=== PATIENT | female | born 1945 | race Hispanic/Latino ===

== ENCOUNTER 2017-01-03 15:41 | Inpatient (IN) | payer MEDICARE, MEDICAID ==
--- NOTE | 2017-01-03 17:24 | C.PDOC ---
History Of Present Illness <Zenobia Yoder - Last Filed: 01/03/17 18:46> <Marielos Valeroyeny Vicente - Last Filed: 01/03/17 21:09> 71 Y/O FEMALE BROUGHT TO emergency department BY SON WHO REPORTS ON AND OFF DIARRHEA FOR ABOUT 1 MONTH. PATIENT STATES DIARRHEA IS NOW MOSTLY LIQUID. DENIES BLOODY DIARRHEA. ALSO REPORTS INCREASED GENERALIZED WEAKNESS. DENIES FEVERS, CHILLS, LIGHTHEADEDNESS, DIZZINESS, NAUSEA, VOMITING, ABDOMINAL PAIN. ( Zenobia Yoder) History Per: Patient History/Exam Limitations: no limitations Onset/Duration Of Symptoms: Days Current Symptoms Are (Timing): Still Present Reports Recently: Treated By A Physician Recent travel outside of the [place]: No <Zenobia Yoder - Last Filed: 01/03/17 18:46> <Bob Valero Jules - Last Filed: 01/03/17 21:09> Time Seen by Provider: 01/03/17 16:56 Chief Complaint (Nursing): GI Problem Past Medical History Reviewed: Historical Data, Nursing Documentation, Vital Signs - Medical History PMH: Anxiety, Depression, HTN Surgical History: Cholecystectomy Family History: States: Unknown Family Hx - Social History Hx Alcohol Use: No Hx Substance Use: No - Immunization History Hx Tetanus Toxoid Vaccination: No Hx Influenza Vaccination: No Hx Pneumococcal Vaccination: No <Zenobia Yoder Last Filed: 01/03/17 18:46> Review Of Systems Except As Marked, All Systems Reviewed And Found Negative. Constitutional: Positive for: Weakness. Negative for: Fever, Chills Cardiovascular: Negative for: Chest Pain Respiratory: Negative for: Cough, Shortness of Breath Gastrointestinal: Positive for: Diarrhea. Negative for: Abdominal Pain Skin: Negative for: Rash Neurological: Negative for: Headache, Dizziness <Zenobia Yoder - Last Filed: 01/03/17 18:46> Physical Exam - Physical Exam Appears: Non-toxic, No Acute Distress Skin: Normal Color, Warm, Dry Head: Atraumatic, Normacephalic Oral Mucosa: Moist Chest: Symmetrical Cardiovascular: Rhythm Regular Respiratory: Normal Breath Sounds, No Rales, No Rhonchi, No Wheezing Gastrointestinal/Abdominal: Soft, No Tenderness, No Guarding, No Rebound Back: Normal Inspection Extremity: Normal ROM, Capillary Refill (< 2 sec. ) Neurological/Psych: Oriented x3, Normal Speech, Normal Cognition <Ho,Zenobia - Last Filed: 01/03/17 18:46> ED Course And Treatment - Laboratory Results Result Diagrams: 01/03/17 18:27 O2 Sat by Pulse Oximetry: 99 <Zenobia Yoder - Last Filed: 01/03/17 18:46> - Laboratory Results Result Diagrams: 01/03/17 18:27 01/03/17 18:27 Progress Note: Dr. Conner's office called, Dr. Sherwood was found to be covering for Dr. Conner and was made aware of patient. <Bob Valero - Last Filed: 01/03/17 21:09> Progress - Data Reviewed Data Reviewed: Lab <Zenobia Yoder - Last Filed: 01/03/17 18:46> <Bob Valero - Last Filed: 01/03/17 21:09> - Re-Evaluation Re-evaluation Note: 01/03/17 17:40 SON STATES UNABLE TO CARE FOR PT AT HOME. REQUESTING ADMISSION FOR POSSIBLE PLACEMENT 01/03/17 19:00 APPEARS COMFORTABLE NAD S/O DR VALERO FU LABS, DISPO (Zenobia Yoder) Disposition <Zenobia Yoder - Last Filed: 01/03/17 18:46> Discussed With : Angela Hickey Doctor Will See Patient In The: Hospital Counseled Patient/Family Regarding: Diagnosis - Disposition Disposition Time: 20:53 - POA Present On Arrival: None <Bob Valero - Last Filed: 01/03/17 21:09> - Disposition Disposition: HOSPITALIZED Condition: STABLE Forms: [facility] ([place]) - Clinical Impression Clinical Impression: Diarrhea, Renal insufficiency
[2017-01-03 18:35] LABS: BASO # 0.1 K/uL (0.0-0.2); BASO % 1.1 % (0.0-2.0); EOS # 0.2 K/uL (0.0-0.7); EOS % 1.8 % (0.0-4.0); HEMATOCRIT 46.8 % (34.0-47.0); LYMPH # 2.7 K/uL (1.0-4.3); LYMPH % 29.1 % (20.0-40.0); MEAN CELL VOLUME 92.9 fL (81.0-99.0); MEAN CORPUSCULAR HEMOGLOBIN 30.9 pg (27.0-31.0); MEAN CORPUSCULAR HGB CONC 33.2 g/dL (33.0-37.0); MEAN PLATELET VOLUME 9.9 fL (7.2-11.7); MONO # 0.6 K/uL (0.0-0.8); MONO % 6.6 % (0.0-10.0); RED CELL DISTRIBUTION WIDTH 14.6 % (11.5-14.5); WHITE BLOOD COUNT 9.3 K/uL (4.8-10.8)
[2017-01-03 18:49] LABS: CALCIUM 10.9 mg/dl (8.6-10.4)
[2017-01-03] MEDS ORDERED: Sodium Chloride 0.9% 1,000 ML IV ONE (20:40)
[2017-01-03] MEDS ORDERED: Sodium Chloride 0.9% 1,000 ML ONE (21:17)
[2017-01-04] MEDS: Sodium Chloride 0.45% 1,000 ML IV SCH ×3 (00:14→22:10)
[2017-01-04 07:15] LABS: BASO # 0.1 K/uL (0.0-0.2); BASO % 0.7 % (0.0-2.0); EOS # 0.2 K/uL (0.0-0.7); EOS % 2.7 % (0.0-4.0); HEMATOCRIT 44.1 % (34.0-47.0); LYMPH # 2.7 K/uL (1.0-4.3); LYMPH % 31.7 % (20.0-40.0); MEAN CELL VOLUME 93.2 fL (81.0-99.0); MEAN CORPUSCULAR HEMOGLOBIN 30.3 pg (27.0-31.0); MEAN CORPUSCULAR HGB CONC 32.5 g/dL (33.0-37.0); MEAN PLATELET VOLUME 10.6 fL (7.2-11.7); MONO # 0.8 K/uL (0.0-0.8); MONO % 9.6 % (0.0-10.0); NRBC % 0.1 % (0.0-2.0); RED CELL DISTRIBUTION WIDTH 14.3 % (11.5-14.5); WHITE BLOOD COUNT 8.4 K/uL (4.8-10.8)
[2017-01-04 07:57] LABS: ALB/GLOB RATIO 1.1 (1.0-2.1); BILIRUBIN,TOTAL 0.4 mg/dL (0.2-1.3); POTASSIUM 3.5 mmol/L (3.6-5.2)
[2017-01-04] MEDS ORDERED: TRAZODONE HCL 50 MG PO SCH (10:00)
[2017-01-04] MEDS ORDERED: Albuterol HFA 90 mcg/actuation (8 g) IH SCH (10:00)
[2017-01-04] MEDS: Multiple Vitamins Tab PO SCH (10:42)
[2017-01-04] MEDS: Pantoprazole 40 mg EC Tab PO SCH (10:42)
--- NOTE | 2017-01-04 11:12 | CP.PCM.CON ---
History of Present Illness - History of Present Illness History of Present Illness: 71 Y/O FEMALE BROUGHT TO emergency department BY SON WHO REPORTS ON AND OFF DIARRHEA FOR ABOUT 1 MONTH. PATIENT STATES DIARRHEA IS NOW MOSTLY LIQUID. DENIES BLOODY DIARRHEA. ALSO REPORTS INCREASED GENERALIZED WEAKNESS. DENIES FEVERS, CHILLS, LIGHTHEADEDNESS, DIZZINESS, NAUSEA, VOMITING, ABDOMINAL PAIN. Consulted for new increase in azotemia. NO H/O CKD PMH: HTN DEPRESSION KIDNEY STONES RUPTURED KIDNEY CYST 10 YEARS AGO REQUIRING PNT PSH: CHOLEYCYSTECTOMY PNT; REMOVAL Review of Systems - Constitutional Constitutional: Chills, Lethargy, Weakness - EENT Eyes: absent: As Per HPI, Blind Spots, Blurred Vision, Change in Vision, Decreased Night Vision, Diplopia, Discharge, Dry Eye, Exophthalmos, Floaters, Irritation, Itchy Eyes, Loss of Peripheral Vision, Pain, Photophobia, Requires Corrective Lenses, Sees Flashes, Spots in Vision, Tunnel Vision, Other Visual Disturbances, Loss of Vision, Other Ears: absent: As Per HPI, Decreased Hearing, Ear Discharge, Ear Pain, Tinnitus, Abnormal Hearing, Disequilibrium, Dizziness, Other Nose/Mouth/Throat: absent: As Per HPI, Epistaxis, Nasal Congestion, Nasal Discharge, Nasal Obstruction, Nasal Trauma, Nose Pain, Post Nasal Drip, Sinus Pain, Sinus Pressure, Bleeding Gums, Change in Voice, Dental Pain, Dry Mouth, Dysphagia, Halitosis, Hoarsness, Lip Swelling, Mouth Lesions, Mouth Pain, Odynophagia, Sore Throat, Throat Swelling, Tongue Swelling, Facial Pain, Neck Pain, Neck Mass, Other - Cardiovascular Cardiovascular: absent: As Per HPI, Acrocyanosis, Chest Pain, Chest Pain at Rest , Chest Pain with Activity, Claudication, Diaphoresis, Dyspnea, Dyspnea on Exertion, Edema, Irregular Heart Rhythm, Pain Radiating to Arm/Neck/Jaw, Leg Edema, Leg Ulcers, Lightheadedness, Orthopnea, Palpitations, Paroxysmal Nocturnal Dyspnea, Pedal Edema, Radiating Pain, Rapid Heart Rate, Slow Heart Rate, Syncope, Other - Respiratory Respiratory: absent: As Per HPI, Cough, Dyspnea, Hemoptysis, Dyspnea on Exertion , Wheezing, Snoring, Stridor, Pain on Inspiration, Chest Congestion, Excessive Mucous Production, Change in Mucous Color, Pain with Coughing, Other - Gastrointestinal Gastrointestinal: Abdominal Pain, Diarrhea - Genitourinary Genitourinary: Difficulty Urinating, Voiding Freq/Small Amts - Musculoskeletal Musculoskeletal: Arthralgias, Muscle Cramps, Stiffness - Integumentary Integumentary: absent: As Per HPI, Acne, Alopecia, Bleeding Lesions, Change in Hair, Change in Nails, Change in Pigmentation, Changing Lesions, Dry Skin, Erythema, Furuncle, Hirsutism, Lesions, New Lesions, Non-Healing Lesions, Photosensitivity, Pruritus, Rash, Skin Pain, Skin Ulcer, Sores, Striae, Swelling , Unusual Bruising, Wounds, Jaundice, Other - Neurological Neurological: absent: As Per HPI, Abnormal Gait, Abnormal Hearing, Abnormal Movements, Abnormal Speech, Behavioral Changes, Burning Sensations, Confusion, Convulsions, Disequilibrium, Dizziness, Numbness, Focal Weakness, Frequent Falls , Headaches, Lack of Coordination, Loss of Vision, Memory Loss, Paresthesias, Radicular Pain, Restless Legs, Sensory Deficit, Syncope, Tingling, Tremor, Vertigo, Weakness, Other Visual Disturbances, Other - Psychiatric Psychiatric: Anxiety, Depression Past Patient History - Past Medical History & Family History Past Medical History?: Yes Past Family History: Reviewed and not pertinent - Past Social History Smoking Status: Heavy Smoker > 10 Cigarettes Daily Chewing Tobacco Use: No Cigar Use: No Alcohol: None Home Situation {Lives}: Friends - CARDIAC Hx Cardiac Disorders: Yes Hx Hypertension: Yes - PULMONARY Hx Respiratory Disorders: No - NEUROLOGICAL Hx Neurological Disorder: No - HEENT Hx HEENT Problems: No - RENAL Hx Chronic Kidney Disease: No - ENDOCRINE/METABOLIC Hx Endocrine Disorders: No - HEMATOLOGICAL/ONCOLOGICAL Hx Blood Disorders: No - INTEGUMENTARY Hx Dermatological Problems: No - MUSCULOSKELETAL/RHEUMATOLOGICAL Hx Falls: No - GASTROINTESTINAL Hx Gastrointestinal Disorders: No - GENITOURINARY/GYNECOLOGICAL Hx Genitourinary Disorders: No - PSYCHIATRIC Hx Psychophysiologic Disorder: Yes Hx Anxiety: Yes Hx Depression: Yes Hx Substance Use: No - SURGICAL HISTORY Hx Surgeries: Yes Hx Cholecystectomy: Yes - ANESTHESIA Hx Anesthesia: Yes Hx Anesthesia Reactions: No Hx Malignant Hyperthermia: No Has any member of the family had a problem w/ anesthesia?: No Meds Allergies/Adverse Reactions: Allergies Allergy/AdvReac Type Severity Reaction Status Date / Time No Known Allergies Allergy Verified 01/03/17 16:03 - Medications Medications: Current Medications Albuterol (Ventolin Hfa 90 Mcg/Actuation (8 G)) 90 puff IH RQID [facility] Amlodipine Besylate (Norvasc) 5 mg PO DAILY [facility] Last Admin: 01/04/17 10:43 Dose: 5 mg Aspirin (Aspirin Chewable) 81 mg PO DAILY [facility] Last Admin: 01/04/17 10:42 Dose: 81 mg Heparin Sodium (Porcine) (Heparin) 5,000 units SC Q8 [facility] Sodium Chloride (Sodium Chloride 0.45%) 1,000 mls @ 75 mls/hr IV .[id number] [facility] Last Admin: 01/04/17 00:14 Dose: 75 mls/hr Metoprolol Tartrate (Lopressor) 50 mg PO BID [facility] Last Admin: 01/04/17 10:44 Dose: Not Given Montelukast Sodium (Singulair) 10 mg PO DAILY [facility] Last Admin: 01/04/17 10:43 Dose: 10 mg Multivitamins (Hexavitamin) 1 tab PO DAILY [facility] Last Admin: 01/04/17 10:42 Dose: 1 tab Pantoprazole Sodium (Protonix Ec Tab) 40 mg PO DAILY [facility] Last Admin: 01/04/17 10:42 Dose: 40 mg Pneumococcal Polyvalent Vaccine (Pneumovax 23 Vaccine) 0.5 ml IM .ONCE ONE Stop: 01/06/17 10:01 Trazodone HCl (Desyrel) 50 mg PO [facility] Physical Exam - Constitutional Appears: No Acute Distress, Chronically Ill - Head Exam Head Exam: ATRAUMATIC, NORMAL INSPECTION - Eye Exam Eye Exam: EOMI, Normal appearance - Neck Exam Neck exam: Positive for: Normal Inspection. Negative for: Tenderness - Respiratory Exam Respiratory Exam: Clear to Auscultation Bilateral, NORMAL BREATHING PATTERN - Cardiovascular Exam Cardiovascular Exam: REGULAR RHYTHM, +S1 - GI/Abdominal Exam GI & Abdominal Exam: Soft. absent: Tenderness - Extremities Exam Extremities exam: Positive for: normal inspection. Negative for: tenderness - Neurological Exam Neurological exam: CN II-XII Intact, Oriented x3 - Skin Skin Exam: Dry, Warm Results - Vital Signs Recent Vital Signs: Last Vital Signs Temp 97.7 F 01/04/17 08:14 Pulse 58 L 01/04/17 08:14 Resp 20 01/04/17 08:14 BP 138/77 01/04/17 08:14 Pulse Ox 96 01/04/17 08:14 - Labs Result Diagrams: 01/04/17 06:35 01/04/17 06:32 Labs: Laboratory Results - last 24 hr 01/04/17 01/04/17 06:32 06:35 WBC 8.4 RBC 4.74 Hgb 14.3 Hct 44.1 MCV 93.2 MCH 30.3 MCHC 32.5 L RDW 14.3 Plt Count 118 L D MPV 10.6 Neut % (Auto) 55.3 Lymph % (Auto) 31.7 [place] % (Auto) 9.6 Eos % (Auto) 2.7 Baso % (Auto) 0.7 Neut # 4.6 Lymph # 2.7 [place] # 0.8 Eos # 0.2 Baso # 0.1 Sodium 139 Potassium 3.5 L Chloride 105 Carbon Dioxide 22 Anion Gap 16 BUN 42 H Creatinine 2.2 H Est GFR ( Amer) 27 Est GFR (Non-Af Amer) 22 Random Glucose 101 Calcium 10.0 Total Bilirubin 0.4 AST 20 ALT 32 Alkaline Phosphatase 65 Total Protein 6.0 L Albumin 3.2 L Globulin 2.8 Albumin/Globulin Ratio 1.1 Assessment & Plan (1) Watery diarrhea syndrome Status: Acute (2) Dehydration Status: Acute (3) Essential (primary) hypertension Status: Acute - Assessment and Plan (Free Text) Plan: Renal US check u/a check for proteinuria agree with IV fluids Hold BP meds Replete K
--- NOTE | 2017-01-04 11:28 | US ---
PROCEDURE: Renal/urinary bladder ultrasound HISTORY: Renal failure COMPARISON: None available. TECHNIQUE: Sonogram of the kidneys/urinary bladder. FINDINGS: RIGHT KIDNEY: Measures: 10.5 x 4.6 x 5.5 cm. No hydronephrosis or obstructing calculus identified. 2.8 x 2.6 x 2.1 cm, 2.2 x 1.5 x 2.1 cm, and 2.0 x 1.3 x 1.8 cm renal cysts. LEFT KIDNEY: Measures: 11.0 x 5.0 x 5.2 cm. No hydronephrosis or obstructing calculus identified. 1.6 x 1.5 x 1.3 cm (with evidence of septation), 13.2 x 2.7 x 3.0 cm, and 2.1 x 2.1 x 2.3 cm renal cysts. OTHER FINDINGS: Prevoid urinary bladder measures approximately 5.7 x 5.4 x 7.6 cm, calculated volume 123 mL. No postvoid residual. The right ureteral jet is identified. The left ureteral jet was not seen. IMPRESSION: Bilateral renal cysts. Prevoid urinary bladder volume 123 mL. No postvoid residual. The right ureteral jet is identified. The left ureteral jet was not seen.
[2017-01-04] MEDS: Albuterol HFA 90 mcg/actuation (8 g) IH SCH ×3 (12:23→19:18)
--- NOTE | 2017-01-04 14:41 | PCM.PSYCH ---
Initial Psychiatric Evaluation - Initial Psychiatric Evaluation Chief Complaint (in patient's own words): "I cry a lot" Patient's Reaction to Hospitalization: cooperative History of Present Illness and Precipitating Events: The patient was seen, the chart was reviewed, and the case was discussed with the attending. Mrs Gonzalez is a 71 year old female with a past psychiatric history of anxiety who is admitted on the med/surg unit for diarrhea of 1 month. Psychiatry was consulted due to her history of anxiety. During our interview Mrs Gonzalez was pleasant, alert, attentive and AAOx4. She admitted to feeling anxiety about her living situation as her son can no longer care for her and wants [place] [facility] [place] [facility]. She denied depressive symptoms such as anhedonia, loss of interest or general discontent but also said "I've always cried a lot". When asked if she had suicidal ideations she said "sometimes I wish I were " but that these were passing thoughts and that she had no plan. She stated she was excited about her daughters upcoming wedding. She denies auditory or visual hallucinations, paranoia. She denies alcohol abuse or substance abuse. She stated that was has never been hospitalized for a psychiatric condition. She's seen a psychiatrist outpatient in the past but not currently. Pyschiatric Hx: anxiety Other Medical Hx: HTN, hx of nephrolithiasis Pyschiatric Medications: clonazepam 0.5mg bid Social Hx: ; 3 adult children; [place] but currently living with son in ; denies alcohol; current smoker; Fam hx: denies Current Medications: Active Medications Generic Name Dose Route Start Last Admin Trade Name Sunitha PRN Reason Stop Dose Admin Albuterol 90 puff 01/04/17 12:00 01/04/17 12:23 Ventolin Hfa 90 Mcg/Actuation (8 G) IH Not Given RQID [facility] Amlodipine Besylate 5 mg 01/04/17 10:00 01/04/17 10:43 Norvasc PO 5 mg DAILY [facility] Administration Aspirin 81 mg 01/04/17 10:01/04/17 10:42 Aspirin Chewable PO 81 mg DAILY [facility] Administration Heparin Sodium (Porcine) 5,000 units 01/04/17 14:00 Heparin SC Q8 [facility] Sodium Chloride 1,000 mls @ 75 mls/hr 01/03/17 23:45 01/04/17 00:14 Sodium Chloride 0.45% IV 75 mls/hr .[id number] NICHOLAS Administration Metoprolol Tartrate 50 mg 01/04/17 10:00 01/04/17 10:44 Lopressor PO Not Given BID NICHOLAS Montelukast Sodium 10 mg 01/04/17 10:00 01/04/17 10:43 Singulair PO 10 mg DAILY [facility] Administration Multivitamins 1 tab 01/04/17 10:00 01/04/17 10:42 Hexavitamin PO 1 tab DAILY [facility] Administration Pantoprazole Sodium 40 mg 01/04/17 10:00 01/04/17 10:42 Protonix Ec Tab PO 40 mg DAILY [facility] Administration Pneumococcal Polyvalent Vaccine 0.5 ml 01/06/17 10:00 Pneumovax 23 Vaccine IM 01/06/17 10:01 .ONCE ONE Potassium Chloride 20 meq 01/04/17 11:30 K-Dur 20 Meq Er Tab PO 01/06/17 06:00 DAILY [facility]ICH[facility] Trazodone HCl 50 mg 01/04/17 22:00 Desyrel PO HS NICHOLAS Past Psychiatric History - Past Psychiatric History Prior Professional Help: saw psychiatrist outpatient History of ETOH/Drug Use: denies History of Family Illness: denies Pertinent Medical Hx (Current Medical&Sleep Prob, Allergies): Allergies Allergy/AdvReac Type Severity Reaction Status Date / Time No Known Allergies Allergy Verified 01/03/17 16:03 Albuterol Sulfate [Proair Hfa] 0.09 mg IH QID 01/03/17 Aspirin 81 mg PO DAILY 01/03/17 Metoprolol Tartrate [Lopressor] 50 mg PO BID 01/03/17 Mirabegron [Myrbetriq] 25 mg PO DAILY 01/03/17 Montelukast Sodium [Singulair] 10 mg PO DAILY 01/03/17 Multivitamin [Daily Jean Claude] 1 tab PO DAILY 01/03/17 Olmesartan/Hydrochlorothiazide [Olmesartan-Hctz 40-25 mg Tab] 1 each PO DAILY Pantoprazole Sodium [Protonix] 40 mg PO DAILY 01/03/17 Spironolactone [Aldactone] 25 mg PO DAILY 01/03/17 Trazodone HCl 50 mg PO DAILY 01/03/17 amLODIPine [Norvasc] 5 mg PO DAILY 01/03/17 clonazePAM [clonAZEPAM] 0.5 mg PO BID 01/03/17 Review of Systems - Psychiatric Psychiatric: Anxiety, Depression. absent: Anhedonia, Auditory Hallucinations, Confusion, Difficulty Concentrating, Homicidal Ideation, Hopelessness, Paranoia , Suicidal Ideation, Visual Hallucinations Mental Status Examination - Affect Affect: Broad - Motor Activity Motor Activity: Calm - Reliability in Providing Information Reliability in Providing Information: Good - Speech Speech: Organized - Mood Mood: Depressed, Anxious - Formal Thought Process Formal Thought Process: No Impairment - Obsessions/Compulsions Obsessions: No Compulsions: No - Cognitive Functions Orientation: Person, Place, Situation, Time Sensorium: Alert Attention/Concentration: Attentive Abstract Thinking: [place] Estimate of Intelligence: Average Judgement: Intact, as evidence by: Insight regarding need for hospitalization Memory: Recent intact, as evidence by: Ability to recall events of the day - Risk Risk: Diminished functioning - Strength & Assets Inventory Strength & Assets Inventory: Family support, Cooperative DSM 5 DX - DSM 5 DSM 5 Diagnosis: Major depressive disorder single episode mild - Recommended/Plan of Treatment Treatment Recommendations and Plan of Treatment: Major depressive disorder single episode mild CBT Psychoeducation Supportive therapy con't home med of clonazepam 0.5mg po bid con't home med of trazadone 50mg po hs start escitalopram 5mg po daily
[2017-01-04] MEDS: Potassium Chloride 20 mEq ER Tab PO SCH (14:59)
--- NOTE | 2017-01-04 16:01 | CP.PCM.PN ---
Subjective - Date & Time of Evaluation Date of Evaluation: 01/04/17 Time of Evaluation: 15:30 - Subjective Subjective: Patient is seen and examined at bedside. Objective - Vital Signs/Intake and Output Vital Signs (last 24 hours): Temp Pulse Resp BP Pulse Ox 97.7 F 58 L 20 138/77 96 01/04/17 08:14 01/04/17 08:14 01/04/17 08:14 01/04/17 08:14 01/04/17 08:14 - Medications Medications: Current Medications Albuterol (Ventolin Hfa 90 Mcg/Actuation (8 G)) 90 puff IH RQID [facility] Last Admin: 01/04/17 15:55 Dose: Not Given Amlodipine Besylate (Norvasc) 5 mg PO DAILY [facility] Last Admin: 01/04/17 10:43 Dose: 5 mg Aspirin (Aspirin Chewable) 81 mg PO DAILY [facility] Last Admin: 01/04/17 10:42 Dose: 81 mg Clonazepam (Klonopin) 0.5 mg PO BID [facility] Escitalopram Oxalate (Lexapro) 5 mg PO DAILY [facility] Heparin Sodium (Porcine) (Heparin) 5,000 units SC Q8 [facility] Last Admin: 01/04/17 15:00 Dose: 5,000 units Sodium Chloride (Sodium Chloride 0.45%) 1,000 mls @ 75 mls/hr IV .[id number] [facility] Last Admin: 01/04/17 15:01 Dose: 75 mls/hr Metoprolol Tartrate (Lopressor) 50 mg PO BID [facility] Last Admin: 01/04/17 10:44 Dose: Not Given Montelukast Sodium (Singulair) 10 mg PO DAILY [facility] Last Admin: 01/04/17 10:43 Dose: 10 mg Multivitamins (Hexavitamin) 1 tab PO DAILY [facility] Last Admin: 01/04/17 10:42 Dose: 1 tab Pantoprazole Sodium (Protonix Ec Tab) 40 mg PO DAILY [facility] Last Admin: 01/04/17 10:42 Dose: 40 mg Pneumococcal Polyvalent Vaccine (Pneumovax 23 Vaccine) 0.5 ml IM .ONCE ONE Stop: 01/06/17 10:01 Potassium Chloride (K-Dur 20 Meq Er Tab) 20 meq PO DAILY [facility] Stop: 01/06/17 06:00 Last Admin: 01/04/17 14:59 Dose: 20 meq Trazodone HCl (Desyrel) 50 mg PO HS [facility] - Labs Labs: 01/04/17 06:35 01/04/17 06:32
[2017-01-04 16:56] LABS: RBC URINE < 1 /hpf (0-3); TRANSITIONAL EPITHIAL < 1 /hpf (0-3); URINE BACTERIA RARE (<OCC); URINE BILIRUBIN NEGATIVE (NEGATIVE); URINE BLOOD NEGATIVE (NEGATIVE); URINE COLOR Straw (YELLOW); URINE GLUCOSE (UA) NORMAL (Normal); URINE KETONE NEGATIVE (NEGATIVE); URINE PROTEIN 1+ mg/dL (NEGATIVE); URINE UROBILINOGEN NORMAL mg/dL (0.2-1.0); WBC URINE 8 /hpf (0-5)
[2017-01-04 16:57] LABS: URINE LEUKOCYTE ESTERASE 1+ Leu/uL (Negative)
[2017-01-04 18:52] LABS: C DIFF TOXIN A B POSITIVE (NEGATIVE)
[2017-01-04 19:58] LABS: FECAL LEUKOCYTES NEGATIVE (NEGATIVE)
[2017-01-05] MEDS: Sodium Chloride 0.45% 1,000 ML IV SCH ×2 (06:07→15:45)
--- NOTE | 2017-01-05 06:14 | HP ---
CHIEF COMPLAINT: Progressive worsening of low back pain and black colored stools over the past one month. HISTORY OF PRESENT ILLNESS: Ms. Gonzalez is a 71-year-old female with past medical history of back pain with sciatica, hypertension, depression, anxiety, asthma who has been following up at [facility] came into the ED brought by the patient's son for worsening symptoms of back pain, unable to ambulate at home and for persistent diarrhea. As per the patient, her back pain has been their for longtime. Her back pain is in the lower back radiating to the right leg. Denies any neurologic deficits, but claiming that she is not able to ambulate, using only cane to walk around. She claims that she has been having multiple episodes of watery loose bowel movements, which were turning like black in the past few days, it is not able to hold the bowel movement, claiming that sometime she would do the bowel movements in her dress or on her way to the bathroom as she could not control. She denies any headache, but complaining of generalized fatigue. Denies dizziness. Denies any chest pain, shortness of breath or wheezing. Denies any nausea, vomiting or abdominal pain. Denies any urinary complaints. Denies any other joint swelling or other neurologic symptoms. PAST MEDICAL HISTORY: As described hypertension, asthma, anxiety and depression. FAMILY HISTORY: Both mother and father . PERSONAL HISTORY: She is , having 3 children. She used to live with her daughter in [place] now visiting her son in [place]. 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 SOCIAL HISTORY: She has been smoking for many years. Smokes 5 cigarettes to 1 pack per day. Denies any alcohol or drug abuse. ALLERGIES: NO KNOWN DRUG ALLERGIES. MEDICATIONS: Include metoprolol 50 mg b.i.d., clonazepam 0.5 mg b.i.d., Norvasc 5 mg daily, losartan and hydrochlorothiazide 40/25 mg daily, Singulair 10 mg daily, albuterol inhaler, multivitamin daily, Myrbetriq 25 mg daily, aspirin 81 mg daily, spironolactone 25 mg daily, Protonix 40 mg daily and Trazodone 50 mg daily. PAST SURGICAL HISTORY: Underwent cholecystectomy and left kidney cyst rupture about 10 years ago and left breast biopsy, left nipple region 2 days ago for chronic nipple discharge. REVIEW OF SYSTEMS: As described in history of present illness. All other systems reviewed and were found to be negative. PHYSICAL EXAMINATION: GENERAL: An elderly female, lying in bed in no acute distress. VITAL SIGNS: Blood pressure 138/77, pulse 58, respirations 20, temperature 97.7 degrees Fahrenheit, and O2 sats 96% on room air. HEENT: Pupils are equal, round, and reactive to light and accommodation. Extraocular muscles intact. No icterus. No pallor. No oral thrush. No pharyngeal congestion. NECK: Supple. No JVD. No thyromegaly. CHEST: Moving equally bilaterally on respiration. LUNGS: Bilateral vesicular breath sounds. No wheezing. No rhonchi. CVS: S1 and S2 present and regular. ABDOMEN: Soft and nontender. Bowel sounds present. No guarding. No rigidity. No rebound tenderness noted. CLAIMS VICE PRESIDENT: Alert, awake, and oriented x3. Decreased reflexes in the right side and power 3-4/5 in the right lower extremity. EXTREMITIES: No edema. Palpable peripheral pulses. LABORATORY DATA: WBC 8.4, hemoglobin 14.3, hematocrit 44.1 and platelets 118. Sodium 139, potassium 3.5, chloride 105, bicarb 22, BUN 42, creatinine 2.2, glucose 101, calcium 10.0, total bilirubin 0.4, AST 20, ALT 32, alkaline phosphatase 65, total protein 6.0, albumin 3.2. UA specific gravity 1.009, pH of 5.0, protein 1+, leukocyte esterase 1+, and wbc 8. Bladder ultrasound shows bilateral renal cyst, pre void urinary bladder volume of 23 mL, no post void residual. The right ureteral jet is identified. The left ureteral jet was not seen. ASSESSMENT: An elderly female with past medical history of hypertension, anxiety depression, asthma who has been following up with doctors at [place] admitted for chronic diarrhea for 1 month, which is black colored for the past few days and generalized fatigue. In emergency department, the patient was found to be having elevated BUN and creatinine and the patient is being admitted for further management. 1. Acute kidney injury, probably secondary to dehydration and diarrhea and the patient on angiotensin converting enzyme inhibitors and diuretics. 2. Chronic diarrhea rule out lower gastrointestinal bleeding rule out Clostridium difficile colitis rule out other infectious causes chronic low back pain. 3. Hypertension. 4. History of anxiety and depression. PLAN: The patient is being admitted to medical floor. The patient is started on IV fluids. We will hold on losartan and hydrochlorothiazide and Aldactone, which the patient was getting at home. We will continue with Lopressor and amlodipine. We will give gentle hydration. Repeat BMP in a.m. Renal consult appreciated. We will check stool for culture ova, parasites and C. diff. We will obtain GI evaluation with Dr. Gómez. I will obtain MRI of the lower back. We will request physical therapy and occupational therapy. We will continue with her other psychiatric medication, request psychiatric evaluation. We will add further recommendation as her clinical course progresses. Angela Hickey MD
--- NOTE | 2017-01-05 07:46 | CP.PCM.CON ---
History of Present Illness - History of Present Illness History of Present Illness: This is a 71 year old woman with diarrhea. Patient is a poor historian. Patient has had diarrhea for the past month, up to six or eight bowel movements daily, soft to watery, without abdominal pain or bleeding. She reports only two episodes of nocturnal diarrhea. After taking Pepto-Bismol, the color turned dark. Stool for C. difficile toxin was positive. However, she denies taking antibiotics recently or being hospitalized since her cholecystectomy. Patient reports that a colonoscopy was done five years ago in [facility], and was normal. She denies having fever, chills, dizziness, nausea, vomiting. Review of Systems - Review of Systems All systems: reviewed and no additional remarkable complaints except - Constitutional Constitutional: absent: Chills, Fever - EENT Eyes: absent: Change in Vision Ears: absent: Decreased Hearing Nose/Mouth/Throat: absent: Sore Throat - Cardiovascular Cardiovascular: absent: Chest Pain - Respiratory Respiratory: absent: Cough, Dyspnea - Gastrointestinal Gastrointestinal: Diarrhea. absent: Abdominal Pain, Constipation, Hematochezia , Nausea, Vomiting - Genitourinary Genitourinary: Difficulty Urinating, Voiding Freq/Small Amts - Musculoskeletal Musculoskeletal: Arthralgias, Muscle Cramps, Stiffness Past Patient History - Past Medical History & Family History Past Medical History?: Yes Past Family History: Reviewed and not pertinent - Past Social History Smoking Status: Heavy Smoker > 10 Cigarettes Daily Chewing Tobacco Use: No Cigar Use: No Alcohol: None Home Situation {Lives}: Friends - CARDIAC Hx Cardiac Disorders: Yes Hx Hypertension: Yes - PULMONARY Hx Respiratory Disorders: No - NEUROLOGICAL Hx Neurological Disorder: No - HEENT Hx HEENT Problems: No - RENAL Hx Chronic Kidney Disease: No - ENDOCRINE/METABOLIC Hx Endocrine Disorders: No - HEMATOLOGICAL/ONCOLOGICAL Hx Blood Disorders: No - INTEGUMENTARY Hx Dermatological Problems: No - MUSCULOSKELETAL/RHEUMATOLOGICAL Hx Falls: No - GASTROINTESTINAL Hx Gastrointestinal Disorders: No - GENITOURINARY/GYNECOLOGICAL Hx Genitourinary Disorders: No - PSYCHIATRIC Hx Psychophysiologic Disorder: Yes Hx Anxiety: Yes Hx Depression: Yes Hx Substance Use: No - SURGICAL HISTORY Hx Surgeries: Yes Hx Cholecystectomy: Yes - ANESTHESIA Hx Anesthesia: Yes Hx Anesthesia Reactions: No Hx Malignant Hyperthermia: No Has any member of the family had a problem w/ anesthesia?: No Meds Allergies/Adverse Reactions: Allergies Allergy/AdvReac Type Severity Reaction Status Date / Time No Known Allergies Allergy Verified 01/03/17 16:03 - Medications Medications: Current Medications Albuterol (Ventolin Hfa 90 Mcg/Actuation (8 G)) 90 puff IH RQID [facility] Last Admin: 01/04/17 19:18 Dose: Not Given Amlodipine Besylate (Norvasc) 5 mg PO DAILY [facility] Last Admin: 01/04/17 10:43 Dose: 5 mg Aspirin (Aspirin Chewable) 81 mg PO DAILY [facility] Last Admin: 01/04/17 10:42 Dose: 81 mg Clonazepam (Klonopin) 0.5 mg PO BID [facility] Last Admin: 01/04/17 17:34 Dose: 0.5 mg Escitalopram Oxalate (Lexapro) 5 mg PO DAILY [facility] Heparin Sodium (Porcine) (Heparin) 5,000 units SC Q8 [facility] Last Admin: 01/05/17 06:06 Dose: 5,000 units Sodium Chloride (Sodium Chloride 0.45%) 1,000 mls @ 75 mls/hr IV .[id number] [facility] Last Admin: 01/05/17 06:07 Dose: Not Given Metoprolol Tartrate (Lopressor) 50 mg PO BID [facility] Last Admin: 01/04/17 17:37 Dose: 50 mg Metronidazole (Flagyl) 500 mg PO Q8 [facility] Last Admin: 01/05/17 06:07 Dose: 500 mg Montelukast Sodium (Singulair) 10 mg PO DAILY [facility] Last Admin: 01/04/17 10:43 Dose: 10 mg Multivitamins (Hexavitamin) 1 tab PO DAILY [facility] Last Admin: 01/04/17 10:42 Dose: 1 tab Pantoprazole Sodium (Protonix Ec Tab) 40 mg PO DAILY [facility] Last Admin: 01/04/17 10:42 Dose: 40 mg Pneumococcal Polyvalent Vaccine (Pneumovax 23 Vaccine) 0.5 ml IM .ONCE ONE Stop: 01/06/17 10:01 Potassium Chloride (K-Dur 20 Meq Er Tab) 20 meq PO DAILY [facility] Stop: 01/06/17 06:00 Last Admin: 01/04/17 14:59 Dose: 20 meq Trazodone HCl (Desyrel) 50 mg PO HS [facility] Last Admin: 01/04/17 22:07 Dose: 50 mg Physical Exam - Constitutional Appears: No Acute Distress - Head Exam Head Exam: ATRAUMATIC, NORMOCEPHALIC - Eye Exam Eye Exam: EOMI, PERRL - Neck Exam Neck exam: Negative for: Lymphadenopathy, Thyromegaly - Respiratory Exam Respiratory Exam: NORMAL BREATHING PATTERN. absent: Rales, Rhonchi, Wheezes - Cardiovascular Exam Cardiovascular Exam: REGULAR RHYTHM, +S1, +S2. absent: Gallop, Rubs, Systolic Murmur - GI/Abdominal Exam GI & Abdominal Exam: Normal Bowel Sounds, Soft. absent: Mass, Organomegaly, Tenderness - Rectal Exam Rectal Exam: Deferred - Extremities Exam Extremities exam: Negative for: calf tenderness, pedal edema Results - Vital Signs Recent Vital Signs: Last Vital Signs Temp 97.8 F 01/05/17 00:00 Pulse 81 01/05/17 00:00 Resp 20 01/05/17 00:00 BP 117/70 01/05/17 00:00 Pulse Ox 98 01/05/17 00:00 - Labs Result Diagrams: 01/04/17 06:35 01/04/17 06:32 Labs: Laboratory Results - last 24 hr 01/04/17 01/04/17 01/04/17 06:32 06:35 16:20 WBC 8.4 RBC 4.74 Hgb 14.3 Hct 44.1 MCV 93.2 MCH 30.3 MCHC 32.5 L RDW 14.3 Plt Count 118 L D MPV 10.6 Neut % (Auto) 55.3 Lymph % (Auto) 31.7 [place] % (Auto) 9.6 Eos % (Auto) 2.7 Baso % (Auto) 0.7 Neut # 4.6 Lymph # 2.7 [place] # 0.8 Eos # 0.2 Baso # 0.1 Sodium 139 Potassium 3.5 L Chloride 105 Carbon Dioxide 22 Anion Gap 16 BUN 42 H Creatinine 2.2 H Est GFR ( Amer) 27 Est GFR (Non-Af Amer) 22 Random Glucose 101 Calcium 10.0 Total Bilirubin 0.4 AST 20 ALT 32 Alkaline Phosphatase 65 Total Protein 6.0 L Albumin 3.2 L Globulin 2.8 Albumin/Globulin Ratio 1.1 Urine Color Urine Clarity Urine pH Ur Specific [place] Urine Protein Urine Glucose (UA) Urine Ketones Urine Blood Urine Nitrate Urine Bilirubin Urine Urobilinogen Ur Leukocyte Esterase Urine WBC (Auto) Urine RBC (Auto) Ur Squamous Epith Cells Ur Transition Epith Cell Urine Bacteria Hyaline Casts U Random Total Protein 61.0 H Ur Random Sodium Stool Leukocytes, Qual C. difficile Ag & Toxin 01/04/17 01/04/17 01/04/17 16:37 16:37 17:50 WBC RBC Hgb Hct MCV MCH MCHC RDW Plt Count MPV Neut % (Auto) Lymph % (Auto) [place] % (Auto) Eos % (Auto) Baso % (Auto) Neut # Lymph # [place] # Eos # Baso # Sodium Potassium Chloride Carbon Dioxide Anion Gap BUN Creatinine Est GFR ( Amer) Est GFR (Non-Af Amer) Random Glucose Calcium Total Bilirubin AST ALT Alkaline Phosphatase Total Protein Albumin Globulin Albumin/Globulin Ratio Urine Color Straw Urine Clarity Clear Urine pH 5.0 Ur Specific [place] 1.009 Urine Protein 1+ H Urine Glucose (UA) Normal Urine Ketones Negative Urine Blood Negative Urine Nitrate Negative Urine Bilirubin Negative Urine Urobilinogen Normal Ur Leukocyte Esterase 1+ H Urine WBC (Auto) 8 H Urine RBC (Auto) < 1 Ur Squamous Epith Cells 1 Ur Transition Epith Cell < 1 Urine Bacteria Rare Hyaline Casts 3-5 H U Random Total Protein Cancelled Ur Random Sodium 84 Stool Leukocytes, Qual Negative C. difficile Ag & Toxin Positive H Assessment & Plan (1) Clostridium difficile diarrhea Assessment and Plan: Patient has diarrhea with a positive MARIELA for C difficile toxin, evidently community-acquired. Agree with metronidazole. If metronidazole is ineffective , switch to vancomycin. Records from the last colonoscopy should be requested. Will follow. Status: Acute
[2017-01-05] MEDS: Albuterol HFA 90 mcg/actuation (8 g) IH SCH ×2 (07:49→11:04)
[2017-01-05 08:00] LABS: BASO % 0.6 % (0.0-2.0); EOS # 0.2 K/uL (0.0-0.7); EOS % 3.3 % (0.0-4.0); HEMATOCRIT 45.1 % (34.0-47.0); LYMPH % 27.4 % (20.0-40.0); MEAN CELL VOLUME 93.3 fL (81.0-99.0); MEAN CORPUSCULAR HEMOGLOBIN 30.4 pg (27.0-31.0); MEAN CORPUSCULAR HGB CONC 32.6 g/dL (33.0-37.0); MEAN PLATELET VOLUME 10.2 fL (7.2-11.7); MONO # 0.6 K/uL (0.0-0.8); MONO % 8.8 % (0.0-10.0); RED CELL DISTRIBUTION WIDTH 14.5 % (11.5-14.5); WHITE BLOOD COUNT 7.4 K/uL (4.8-10.8)
[2017-01-05 08:06] LABS: POTASSIUM 3.8 mmol/L (3.6-5.2)
[2017-01-05 08:08] LABS: ALB/GLOB RATIO 1.2 (1.0-2.1); BILIRUBIN,TOTAL 0.4 mg/dL (0.2-1.3); TOTAL PROTEIN 6.7 g/dL (6.3-8.3)
[2017-01-05 08:09] LABS: CALCIUM 9.8 mg/dl (8.6-10.4); MAGNESIUM 1.6 mg/dL (1.6-2.3)
[2017-01-05 08:38] LABS: THYROID STIMULATING HORMONE 4.1 mIU/L (0.46-4.68)
--- NOTE | 2017-01-05 09:59 | CP.PCM.PN ---
Subjective - Date & Time of Evaluation Date of Evaluation: 01/05/17 Time of Evaluation: 10:00 - Subjective Subjective: Progress note dictated #[id number] Objective - Vital Signs/Intake and Output Vital Signs (last 24 hours): Temp Pulse Resp BP Pulse Ox 98.2 F 70 20 150/79 96 01/05/17 08:05 01/05/17 08:05 01/05/17 08:05 01/05/17 08:05 01/05/17 08:05 Intake and Output: 01/05/17 01/05/17 06:59 18:59 Intake Total 1640 Balance 1640 - Medications Medications: Current Medications Albuterol (Ventolin Hfa 90 Mcg/Actuation (8 G)) 90 puff IH RQID [facility] Last Admin: 01/05/17 07:49 Dose: Not Given Amlodipine Besylate (Norvasc) 5 mg PO DAILY [facility] Last Admin: 01/04/17 10:43 Dose: 5 mg Aspirin (Aspirin Chewable) 81 mg PO DAILY [facility] Last Admin: 01/04/17 10:42 Dose: 81 mg Clonazepam (Klonopin) 0.5 mg PO BID [facility] Last Admin: 01/04/17 17:34 Dose: 0.5 mg Escitalopram Oxalate (Lexapro) 5 mg PO DAILY [facility] Heparin Sodium (Porcine) (Heparin) 5,000 units SC Q8 [facility] Last Admin: 01/05/17 06:06 Dose: 5,000 units Sodium Chloride (Sodium Chloride 0.45%) 1,000 mls @ 75 mls/hr IV .[id number] [facility] Last Admin: 01/05/17 06:07 Dose: Not Given Metoprolol Tartrate (Lopressor) 50 mg PO BID [facility] Last Admin: 01/04/17 17:37 Dose: 50 mg Metronidazole (Flagyl) 500 mg PO Q8 [facility] Last Admin: 01/05/17 06:07 Dose: 500 mg Montelukast Sodium (Singulair) 10 mg PO DAILY [facility] Last Admin: 01/04/17 10:43 Dose: 10 mg Multivitamins (Hexavitamin) 1 tab PO DAILY [facility] Last Admin: 01/04/17 10:42 Dose: 1 tab Pantoprazole Sodium (Protonix Ec Tab) 40 mg PO DAILY [facility] Last Admin: 01/04/17 10:42 Dose: 40 mg Pneumococcal Polyvalent Vaccine (Pneumovax 23 Vaccine) 0.5 ml IM .ONCE ONE Stop: 01/06/17 10:01 Potassium Chloride (K-Dur 20 Meq Er Tab) 20 meq PO DAILY [facility] Stop: 01/06/17 06:00 Last Admin: 01/04/17 14:59 Dose: 20 meq Trazodone HCl (Desyrel) 50 mg PO HS [facility] Last Admin: 01/04/17 22:07 Dose: 50 mg - Labs Labs: 01/05/17 07:45 01/05/17 07:45
[2017-01-05] MEDS: Potassium Chloride 20 mEq ER Tab PO SCH (10:28)
[2017-01-05] MEDS: Pantoprazole 40 mg EC Tab PO SCH (10:29)
[2017-01-05] MEDS: Multiple Vitamins Tab PO SCH (10:29)
[2017-01-05] MEDS ORDERED: Albuterol HFA 90 mcg/actuation (8 g) INH PRN (12:26)
--- NOTE | 2017-01-05 14:27 | CP.PCM.PN ---
Subjective - Date & Time of Evaluation Date of Evaluation: 01/05/17 Time of Evaluation: 14:24 - Subjective Subjective: Dx c. diff colitis On rx with oral flagyl Still with diarrhea - less though Creat decreasing- now 1.9 Renal US- normal sized kidneys, no hydro, with cysts No other complaints Objective - Vital Signs/Intake and Output Vital Signs (last 24 hours): Temp Pulse Resp BP Pulse Ox 98.2 F 70 20 150/79 96 01/05/17 08:05 01/05/17 08:05 01/05/17 08:05 01/05/17 08:05 01/05/17 08:05 Intake and Output: 01/05/17 01/05/17 06:59 18:59 Intake Total 1640 Balance 1640 - Medications Medications: Current Medications Albuterol (Ventolin Hfa 90 Mcg/Actuation (8 G)) 1 puff INH RQ6 PRN PRN Reason: Shortness of Breath Amlodipine Besylate (Norvasc) 5 mg PO DAILY [facility] Last Admin: 01/05/17 10:28 Dose: 5 mg Aspirin (Aspirin Chewable) 81 mg PO DAILY [facility] Last Admin: 01/05/17 10:28 Dose: 81 mg Clonazepam (Klonopin) 0.5 mg PO BID [facility] Last Admin: 01/05/17 10:34 Dose: 0.5 mg Escitalopram Oxalate (Lexapro) 5 mg PO DAILY [facility] Last Admin: 01/05/17 10:29 Dose: 5 mg Heparin Sodium (Porcine) (Heparin) 5,000 units SC Q8 [facility] Last Admin: 01/05/17 14:08 Dose: 5,000 units Sodium Chloride (Sodium Chloride 0.45%) 1,000 mls @ 75 mls/hr IV .[id number] [facility] Last Admin: 01/05/17 06:07 Dose: Not Given Metoprolol Tartrate (Lopressor) 50 mg PO BID [facility] Last Admin: 01/05/17 10:34 Dose: 50 mg Metronidazole (Flagyl) 500 mg PO Q8 [facility] Last Admin: 01/05/17 14:08 Dose: 500 mg Montelukast Sodium (Singulair) 10 mg PO DAILY [facility] Last Admin: 01/05/17 10:34 Dose: 10 mg Multivitamins (Hexavitamin) 1 tab PO DAILY [facility] Last Admin: 01/05/17 10:29 Dose: 1 tab Pantoprazole Sodium (Protonix Ec Tab) 40 mg PO DAILY [facility] Last Admin: 01/05/17 10:29 Dose: 40 mg Pneumococcal Polyvalent Vaccine (Pneumovax 23 Vaccine) 0.5 ml IM .ONCE ONE Stop: 01/06/17 10:01 Potassium Chloride (K-Dur 20 Meq Er Tab) 20 meq PO DAILY [facility] Stop: 01/06/17 06:00 Last Admin: 01/05/17 10:28 Dose: 20 meq Trazodone HCl (Desyrel) 50 mg PO HS [facility] Last Admin: 01/04/17 22:07 Dose: 50 mg - Labs Labs: 01/05/17 07:45 01/05/17 07:45 - Constitutional Appears: No Acute Distress, Chronically Ill - Head Exam Head Exam: ATRAUMATIC, NORMAL INSPECTION - Eye Exam Eye Exam: EOMI, Normal appearance - Neck Exam Neck Exam: Normal Inspection. absent: Tenderness - Respiratory Exam Respiratory Exam: Clear to Ausculation Bilateral, NORMAL BREATHING PATTERN - Cardiovascular Exam Cardiovascular Exam: REGULAR RHYTHM, +S1 - GI/Abdominal Exam GI & Abdominal Exam: Soft. absent: Tenderness - Extremities Exam Extremities Exam: Normal Inspection. absent: Tenderness - Neurological Exam Neurological Exam: Awake, CN II-XII Intact - Skin Skin Exam: Dry, Warm Assessment and Plan (1) Watery diarrhea syndrome Status: Acute (2) Dehydration Status: Acute (3) Essential (primary) hypertension Status: Acute (4) Clostridium difficile diarrhea Status: Acute (5) CRUZ (acute kidney injury) Status: Acute - Assessment and Plan (Free Text) Plan: Continue IV fluids Follow up lytes closely
--- NOTE | 2017-01-06 01:19 | PN ---
DATE: SUBJECTIVE: The patient was seen and examined at bedside this morning. The patient is feeling slightly better. Less diarrhea and low back pain is better. The patient is refusing MRI claiming that she had multiple MRI's in the past. Denies any other new complaints. PHYSICAL EXAMINATION: GENERAL: An elderly female, lying in bed in no acute distress. VITAL SIGNS: Blood pressure 121/76, pulse 70, respirations 20, temperature 98.2 degrees Fahrenheit and O2 sats 96% on room air. HEENT: Pupils are equal, round, and reacting to light and accommodation. Extraocular muscles intact. No icterus. No pallor. No oral thrush. No pharyngeal congestion. NECK: Supple. No JVD. No thyromegaly. CHEST: Moving equally bilaterally on respiration. LUNGS: Bilateral vesicular breath sounds. No wheezing. No rhonchi. CVS: S1 and S2 present and regular. ABDOMEN: Soft and nontender. Bowel sounds present. No guarding. No rigidity. No rebound tenderness noted. MEDICAL DONATION PROFESSIONAL: Alert, awake, and oriented x3. No focal deficits noted. EXTREMITIES: No edema. Palpable peripheral pulses. MEDICATIONS: Include Proventil inhaler, Norvasc 5 mg daily, aspirin 81 mg daily, clonazepam 0.5 mg b.i.d., Lexapro 5 mg daily, Pepcid 20 mg daily, subq heparin 5000 units q. 8 hours, metoprolol 50 mg b.i.d., Flagyl 500 mg p.o. q. 8 hours, Singulair 10 mg p.o. daily, multivitamin 1 tab daily, IV fluids half normal saline 75 mL an hour and trazodone 50 mg p.o. at bedtime. LABORATORY DATA: From this morning, WBC 7.4, hemoglobin 14.7, hematocrit 45.1 and platelets 137. Sodium 140, potassium 3.8, chloride 104, bicarb 26, BUN 33, creatinine 1.9 and glucose 92. Hemoglobin A1c 5.8. LFT's within normal limits. Triglycerides 264, cholesterol 118, LDL 38, HDL 36, TSH 4.10. Stool occult blood negative. Leukocytes negative. Stool C. diff toxin positive. ASSESSMENT AND PLAN: Elderly female with history of low back pain from sciatica, hypertension, anxiety, depression, admitted for chronic diarrhea, consistent with Clostridium difficile colitis, acute kidney injury with improving renal function status post hypokalemia. The patient is started on Flagyl last night. I will continue with gentle hydration. Renal function is improving. I will continue with other home medications. Renal consult and psychiatric consult appreciated. GI consult appreciated. Discuss the case with management and social insurance specialist for possible subacute rehab placement. If the patient is clinically better and cleared by all the consultants, we will plan discharging the patient home versus subacute rehab. Angela Hickey MD
[2017-01-06] MEDS: Sodium Chloride 0.45% 1,000 ML IV SCH ×2 (05:10→18:47)
[2017-01-06 06:27] LABS: POTASSIUM 4.1 mmol/L (3.6-5.2)
[2017-01-06 06:31] LABS: CALCIUM 10.3 mg/dl (8.6-10.4)
[2017-01-06] MEDS: Multiple Vitamins Tab PO SCH (09:40)
[2017-01-06] MEDS ORDERED: Pneumococcal 23-Valent Vaccine IM ONE (10:00)
--- NOTE | 2017-01-06 10:13 | CP.PCM.PN ---
Subjective - Date & Time of Evaluation Date of Evaluation: 01/06/17 Time of Evaluation: 10:10 - Subjective Subjective: Less diarrhea No fevers, chills, n, vomiting Creat decreased to 1.5 No new complaints Objective - Vital Signs/Intake and Output Vital Signs (last 24 hours): Temp Pulse Resp BP Pulse Ox 98 F 62 20 159/85 H 96 01/06/17 09:18 01/06/17 09:18 01/06/17 09:18 01/06/17 09:18 01/06/17 09:18 Intake and Output: 01/06/17 01/06/17 06:59 18:59 Intake Total 850 Balance 850 - Medications Medications: Current Medications Albuterol (Ventolin Hfa 90 Mcg/Actuation (8 G)) 1 puff INH RQ6 PRN PRN Reason: Shortness of Breath Amlodipine Besylate (Norvasc) 5 mg PO DAILY [facility] Last Admin: 01/06/17 09:39 Dose: 5 mg Aspirin (Aspirin Chewable) 81 mg PO DAILY [facility] Last Admin: 01/05/17 10:28 Dose: 81 mg Clonazepam (Klonopin) 0.5 mg PO BID [facility] Last Admin: 01/06/17 09:39 Dose: 0.5 mg Escitalopram Oxalate (Lexapro) 5 mg PO DAILY [facility] Last Admin: 01/06/17 09:43 Dose: 5 mg Famotidine (Pepcid) 20 mg PO DAILY [facility] Heparin Sodium (Porcine) (Heparin) 5,000 units SC Q8 [facility] Last Admin: 01/06/17 05:09 Dose: 5,000 units Sodium Chloride (Sodium Chloride 0.45%) 1,000 mls @ 75 mls/hr IV .[id number] [facility] Last Admin: 01/06/17 05:10 Dose: 75 mls/hr Metoprolol Tartrate (Lopressor) 50 mg PO BID [facility] Last Admin: 01/05/17 17:45 Dose: 50 mg Metronidazole (Flagyl) 500 mg PO Q8 [facility] Last Admin: 01/06/17 05:09 Dose: 500 mg Montelukast Sodium (Singulair) 10 mg PO DAILY [facility] Last Admin: 01/05/17 10:34 Dose: 10 mg Multivitamins (Hexavitamin) 1 tab PO DAILY [facility] Last Admin: 08/12/17 09:40 Dose: 1 tab Trazodone HCl (Desyrel) 50 mg PO HS [facility] Last Admin: 01/05/17 21:32 Dose: 50 mg - Labs Labs: 01/05/17 07:45 01/06/17 06:08 - Constitutional Appears: No Acute Distress, Chronically Ill - Head Exam Head Exam: ATRAUMATIC, NORMAL INSPECTION - Eye Exam Eye Exam: EOMI, Normal appearance - Neck Exam Neck Exam: Normal Inspection. absent: Tenderness - Respiratory Exam Respiratory Exam: Clear to Ausculation Bilateral, NORMAL BREATHING PATTERN - Cardiovascular Exam Cardiovascular Exam: REGULAR RHYTHM, +S1 - GI/Abdominal Exam GI & Abdominal Exam: Soft. absent: Tenderness - Extremities Exam Extremities Exam: Normal Inspection. absent: Pedal Edema, Tenderness - Neurological Exam Neurological Exam: Alert, CN II-XII Intact - Skin Skin Exam: Dry, Warm Assessment and Plan (1) Watery diarrhea syndrome Status: Acute (2) Dehydration Status: Acute (3) Essential (primary) hypertension Status: Acute (4) Clostridium difficile diarrhea Status: Acute (5) CRUZ (acute kidney injury) Status: Acute - Assessment and Plan (Free Text) Plan: Continue IV fluids Rx c.diff colitis ongoing
--- NOTE | 2017-01-06 11:04 | CP.PCM.PN ---
Subjective - Date & Time of Evaluation Date of Evaluation: 01/06/17 Time of Evaluation: 11:01 - Subjective Subjective: Covering Dr Gómez CC: Diarrhea 1 BM today, soft, nonbloody, per patient. No BMs documented. Denies abdominal pain, dyspnea, fevers On PO Flagyl for CDiff colitis Objective - Vital Signs/Intake and Output Vital Signs (last 24 hours): Temp Pulse Resp BP Pulse Ox 98 F 62 20 159/85 H 96 01/06/17 09:18 01/06/17 09:18 01/06/17 09:18 01/06/17 09:18 01/06/17 09:18 Intake and Output: 01/06/17 01/06/17 06:59 18:59 Intake Total 850 Balance 850 - Medications Medications: Current Medications Albuterol (Ventolin Hfa 90 Mcg/Actuation (8 G)) 1 puff INH RQ6 PRN PRN Reason: Shortness of Breath Amlodipine Besylate (Norvasc) 5 mg PO DAILY [facility] Last Admin: 01/06/17 09:39 Dose: 5 mg Aspirin (Aspirin Chewable) 81 mg PO DAILY [facility] Last Admin: 01/05/17 10:28 Dose: 81 mg Clonazepam (Klonopin) 0.5 mg PO BID [facility] Last Admin: 01/06/17 09:39 Dose: 0.5 mg Escitalopram Oxalate (Lexapro) 5 mg PO DAILY [facility] Last Admin: 01/06/17 09:43 Dose: 5 mg Famotidine (Pepcid) 20 mg PO DAILY [facility] Heparin Sodium (Porcine) (Heparin) 5,000 units SC Q8 [facility] Last Admin: 01/06/17 05:09 Dose: 5,000 units Sodium Chloride (Sodium Chloride 0.45%) 1,000 mls @ 75 mls/hr IV .[id number] [facility] Last Admin: 01/06/17 05:10 Dose: 75 mls/hr Metoprolol Tartrate (Lopressor) 50 mg PO BID [facility] Last Admin: 01/05/17 17:45 Dose: 50 mg Metronidazole (Flagyl) 500 mg PO Q8 [facility] Last Admin: 01/06/17 05:09 Dose: 500 mg Montelukast Sodium (Singulair) 10 mg PO DAILY [facility] Last Admin: 01/05/17 10:34 Dose: 10 mg Multivitamins (Hexavitamin) 1 tab PO DAILY [facility] Last Admin: 01/06/17 09:40 Dose: 1 tab Trazodone HCl (Desyrel) 50 mg PO HS [facility] Last Admin: 01/05/17 21:32 Dose: 50 mg - Labs Labs: 01/05/17 07:45 01/06/17 06:08 - Constitutional Appears: No Acute Distress - Head Exam Head Exam: NORMOCEPHALIC - Eye Exam Eye Exam: absent: Scleral icterus - Neck Exam Neck Exam: Normal Inspection - Respiratory Exam Respiratory Exam: Clear to Ausculation Bilateral - Cardiovascular Exam Cardiovascular Exam: REGULAR RHYTHM - GI/Abdominal Exam GI & Abdominal Exam: Soft, Normal Bowel Sounds. absent: Tenderness, Mass Assessment and Plan (1) Clostridium difficile diarrhea Assessment & Plan: Clinically improving with Flagyl. Recommend 2 week course Status: Acute
--- NOTE | 2017-01-06 17:23 | CP.PCM.PN ---
Subjective - Date & Time of Evaluation Date of Evaluation: 01/06/17 Time of Evaluation: 17:00 - Subjective Subjective: Progress note dictated #[id number] Objective - Vital Signs/Intake and Output Vital Signs (last 24 hours): Temp Pulse Resp BP Pulse Ox 97.2 F L 65 20 147/71 93 L 01/06/17 15:00 01/06/17 15:00 01/06/17 15:00 01/06/17 15:00 01/06/17 15:00 Intake and Output: 01/06/17 01/06/17 06:59 18:59 Intake Total 850 1200 Balance 850 1200 - Medications Medications: Current Medications Albuterol (Ventolin Hfa 90 Mcg/Actuation (8 G)) 1 puff INH RQ6 PRN PRN Reason: Shortness of Breath Amlodipine Besylate (Norvasc) 5 mg PO DAILY [facility] Last Admin: 01/06/17 09:39 Dose: 5 mg Aspirin (Aspirin Chewable) 81 mg PO DAILY [facility] Last Admin: 01/06/17 10:30 Dose: 81 mg Clonazepam (Klonopin) 0.5 mg PO BID [facility] Last Admin: 01/06/17 09:39 Dose: 0.5 mg Escitalopram Oxalate (Lexapro) 5 mg PO DAILY [facility] Last Admin: 01/06/17 09:43 Dose: 5 mg Famotidine (Pepcid) 20 mg PO DAILY [facility] Last Admin: 01/06/17 11:30 Dose: 20 mg Heparin Sodium (Porcine) (Heparin) 5,000 units SC Q8 [facility] Last Admin: 01/06/17 13:27 Dose: 5,000 units Sodium Chloride (Sodium Chloride 0.45%) 1,000 mls @ 75 mls/hr IV .[id number] [facility] Last Admin: 01/06/17 05:10 Dose: 75 mls/hr Metoprolol Tartrate (Lopressor) 50 mg PO BID [facility] Last Admin: 01/06/17 11:33 Dose: 50 mg Metronidazole (Flagyl) 500 mg PO Q8 [facility] Last Admin: 01/06/17 13:27 Dose: 500 mg Montelukast Sodium (Singulair) 10 mg PO DAILY [facility] Last Admin: 01/06/17 10:27 Dose: 10 mg Multivitamins (Hexavitamin) 1 tab PO DAILY [facility] Last Admin: 01/06/17 09:40 Dose: 1 tab Trazodone HCl (Desyrel) 50 mg PO HS [facility] Last Admin: 01/05/17 21:32 Dose: 50 mg - Labs Labs: 01/05/17 07:45 01/06/17 06:08
--- NOTE | 2017-01-07 01:53 | PN ---
DATE: 01/06/2017 SUBJECTIVE: The patient was seen and examined at bedside. She is feeling slightly better. Diarrhea is less. Able to ambulate better than yesterday. Denies any other new other complaints. PHYSICAL EXAMINATION: GENERAL: An elderly female, lying in bed in no acute distress. VITAL SIGNS: Blood pressure 147/71, pulse 65, respirations 20, temperature 97.2 degrees Fahrenheit and O2 sats 96% on room air. HEENT: Pupils are equal, round and reacting to light and accommodation. Extraocular muscles intact. No icterus. No pallor. No oral thrush. No pharyngeal congestion. NECK: Supple. No JVD. LUNGS: Bilateral vesicular breath sounds. No wheezing. No rhonchi. CVS: S1 and S2 present and regular. ABDOMEN: Soft and nontender. Bowel sounds present. No guarding. No rigidity. No rebound tenderness noted. SANDBLAST CARVER: Alert, awake and oriented x3. No focal deficits noted. EXTREMITIES: No edema. Palpable peripheral pulses. MEDICATIONS: Include Ventolin, Norvasc 5 mg daily, aspirin 81 mg daily, clonazepam 0.5 mg p.o. b.i.d., Lexapro 5 mg daily, Pepcid 20 mg daily, subq heparin, metoprolol 50 mg p.o. b.i.d., Flagyl 500 mg p.o. q. 8 hours, Singulair 10 mg daily, multivitamin 1 tab daily, IV fluids half normal saline at 75 mL an hour and trazodone 50 mg p.o. at bedtime. LABORATORY DATA: From this morning, sodium 137, potassium 4.1, chloride 108, bicarb 20, BUN 30, creatinine 1.5 and glucose 99. Hemoglobin A1c 5.8. Stool for leukocytes negative. ASSESSMENT AND PLAN: Elderly female with history hypertension, hyperlipidemia, depression, anxiety, asthma admitted for acute kidney injury, chronic diarrhea, consistent with Clostridium difficile colitis, chronic low back pain. Her symptoms are improving with Flagyl, renal function is improving on IV fluids. Blood pressure is stable. We will continue with her current medication if the patient is clinically feeling better and clear by our business risk consultant. We will plan discharging the patient home. The patient is refusing any subacute rehab placement for physical therapy. She is also refusing further workup for low back pain claiming that she had the all workup done with her primary care physician. Advice the patient to follow up with PMD after discharge. Angela Hickey MD
[2017-01-07 07:07] LABS: BASO # 0.1 K/uL (0.0-0.2); BASO % 0.9 % (0.0-2.0); EOS # 0.3 K/uL (0.0-0.7); EOS % 3.6 % (0.0-4.0); LYMPH # 1.8 K/uL (1.0-4.3); LYMPH % 22.5 % (20.0-40.0); MEAN CELL VOLUME 91.8 fL (81.0-99.0); MEAN CORPUSCULAR HEMOGLOBIN 30.8 pg (27.0-31.0); MEAN CORPUSCULAR HGB CONC 33.5 g/dL (33.0-37.0); MEAN PLATELET VOLUME 9.8 fL (7.2-11.7); MONO # 0.7 K/uL (0.0-0.8); MONO % 9.3 % (0.0-10.0); RED CELL DISTRIBUTION WIDTH 14.7 % (11.5-14.5); WHITE BLOOD COUNT 7.9 K/uL (4.8-10.8)
[2017-01-07 07:22] LABS: BILIRUBIN,TOTAL 0.3 mg/dL (0.2-1.3); POTASSIUM 4.1 mmol/L (3.6-5.2); TOTAL PROTEIN 5.4 g/dL (6.3-8.3)
[2017-01-07 07:26] LABS: ALB/GLOB RATIO 1.3 (1.0-2.1)
--- NOTE | 2017-01-07 09:19 | CP.PCM.PN ---
Subjective - Date & Time of Evaluation Date of Evaluation: 01/07/17 Time of Evaluation: : - Subjective Subjective: Patient states that she has not had a bowel movement so far today. She had three bowel movements yesterday which were more formed than the day before. She denies having nausea, vomiting, abdominal pain. Objective - Vital Signs/Intake and Output Vital Signs (last 24 hours): Temp Pulse Resp BP Pulse Ox 98.4 F 66 20 144/75 94 L 01/07/17 00:00 01/07/17 00:00 01/07/17 00:00 01/07/17 00:00 01/07/17 00:00 Intake and Output: 01/07/17 01/07/17 06:59 18:59 Intake Total 2059 Balance 2059 - Medications Medications: Current Medications Albuterol (Ventolin Hfa 90 Mcg/Actuation (8 G)) 1 puff INH RQ6 PRN PRN Reason: Shortness of Breath Amlodipine Besylate (Norvasc) 5 mg PO DAILY [facility] Last Admin: 01/06/17 09:39 Dose: 5 mg Aspirin (Aspirin Chewable) 81 mg PO DAILY [facility] Last Admin: 01/06/17 10:30 Dose: 81 mg Clonazepam (Klonopin) 0.5 mg PO BID [facility] Last Admin: 01/06/17 18:48 Dose: 0.5 mg Escitalopram Oxalate (Lexapro) 5 mg PO DAILY [facility] Last Admin: 01/06/17 09:43 Dose: 5 mg Famotidine (Pepcid) 20 mg PO DAILY [facility] Last Admin: 01/06/17 11:30 Dose: 20 mg Heparin Sodium (Porcine) (Heparin) 5,000 units SC Q8 [facility] Last Admin: 01/07/17 06:34 Dose: 5,000 units Metoprolol Tartrate (Lopressor) 50 mg PO BID [facility] Last Admin: 01/06/17 18:48 Dose: 50 mg Metronidazole (Flagyl) 500 mg PO Q8 [facility] Last Admin: 01/07/17 06:34 Dose: 500 mg Montelukast Sodium (Singulair) 10 mg PO DAILY [facility] Last Admin: 01/06/17 10:27 Dose: 10 mg Multivitamins (Hexavitamin) 1 tab PO DAILY [facility] Last Admin: 01/06/17 09:40 Dose: 1 tab Trazodone HCl (Desyrel) 50 mg PO HS [facility] Last Admin: 01/06/17 21:36 Dose: 50 mg - Labs Labs: 01/07/17 07:01 01/07/17 07:01 - Constitutional Appears: No Acute Distress - Head Exam Head Exam: ATRAUMATIC, NORMOCEPHALIC - Eye Exam Eye Exam: EOMI, PERRL - Neck Exam Neck Exam: absent: Lymphadenopathy, Thyromegaly - Respiratory Exam Respiratory Exam: NORMAL BREATHING PATTERN. absent: Rales, Rhonchi, Wheezes - Cardiovascular Exam Cardiovascular Exam: REGULAR RHYTHM, +S1, +S2. absent: Gallop, Rubs, Murmur - GI/Abdominal Exam GI & Abdominal Exam: Soft, Normal Bowel Sounds. absent: Tenderness, Mass, Organomegaly - Rectal Exam Rectal Exam: Deferred - Extremities Exam Extremities Exam: absent: Calf Tenderness, Pedal Edema Assessment and Plan (1) Clostridium difficile diarrhea Assessment & Plan: Diarrhea is improving on metronidazole. At this point, I would continue with metronidazole for fourteen days. Consider switching to vancomycin if diarrhea recurs. Status: Acute
[2017-01-07] MEDS: Multiple Vitamins Tab PO SCH (09:41)
--- NOTE | 2017-01-07 12:01 | CP.PCM.PN ---
Subjective - Date & Time of Evaluation Date of Evaluation: 01/07/17 Time of Evaluation: 11:35 - Subjective Subjective: Progress note dictated #[id number] Objective - Vital Signs/Intake and Output Vital Signs (last 24 hours): Temp Pulse Resp BP Pulse Ox 97.8 F 74 20 155/83 H 96 01/07/17 08:00 01/07/17 08:00 01/07/17 08:00 01/07/17 08:00 01/07/17 08:00 Intake and Output: 01/07/17 01/07/17 06:59 18:59 Intake Total 2059 Balance 2059 - Medications Medications: Current Medications Albuterol (Ventolin Hfa 90 Mcg/Actuation (8 G)) 1 puff INH RQ6 PRN PRN Reason: Shortness of Breath Amlodipine Besylate (Norvasc) 5 mg PO DAILY [facility] Last Admin: 01/07/17 09:42 Dose: 5 mg Aspirin (Aspirin Chewable) 81 mg PO DAILY [facility] Last Admin: 01/07/17 09:41 Dose: 81 mg Clonazepam (Klonopin) 0.5 mg PO BID [facility] Last Admin: 01/07/17 09:41 Dose: 0.5 mg Escitalopram Oxalate (Lexapro) 5 mg PO DAILY [facility] Last Admin: 01/07/17 09:42 Dose: 5 mg Famotidine (Pepcid) 20 mg PO DAILY [facility] Last Admin: 01/07/17 09:41 Dose: 20 mg Heparin Sodium (Porcine) (Heparin) 5,000 units SC Q8 [facility] Last Admin: 01/07/17 06:34 Dose: 5,000 units Metoprolol Tartrate (Lopressor) 50 mg PO BID [facility] Last Admin: 01/07/17 09:41 Dose: 50 mg Metronidazole (Flagyl) 500 mg PO Q8 [facility] Last Admin: 01/07/17 06:34 Dose: 500 mg Montelukast Sodium (Singulair) 10 mg PO DAILY [facility] Last Admin: 01/07/17 09:41 Dose: 10 mg Multivitamins (Hexavitamin) 1 tab PO DAILY [facility] Last Admin: 01/07/17 09:41 Dose: 1 tab Trazodone HCl (Desyrel) 50 mg PO HS [facility] Last Admin: 01/06/17 21:36 Dose: 50 mg - Labs Labs: 01/07/17 07:01 01/07/17 07:01
--- NOTE | 2017-01-07 16:59 | PN ---
DATE: 01/07/2017 SUBJECTIVE: The patient was seen and examined at bedside. The patient is complaining of loose watery bowel movements this morning, this happened a few minutes ago, claiming that her diarrhea got worse today. Denies any other complaints. Denies any abdominal pain. Denies any chest pain or shortness of breath. REVIEW OF SYSTEMS: All other systems reviewed and were found to be negative. PHYSICAL EXAMINATION: GENERAL: An elderly female, lying in bed, in no acute distress. VITAL SIGNS: Blood pressure 155/83, pulse 74, respirations 20, temperature 97.8 degrees Fahrenheit, and O2 sats 96% on room air. HEENT: Pupils are equal, round, and reactive to light and accommodation. Extraocular muscles intact. No icterus. No pallor. No oral thrush. No pharyngeal congestion. NECK: Supple. No JVD. LUNGS: Bilateral vesicular breath sounds. No wheezing. No rhonchi. CARDIOVASCULAR: S1 and S2 present, regular. ABDOMEN: Soft and nontender. Bowel sounds present. No guarding. No rigidity. No rebound tenderness noted. CENTRAL NERVOUS SYSTEM: Alert, awake, and oriented x3. No focal deficit noted. EXTREMITIES: No edema. Palpable peripheral pulses. MEDICATIONS: Include Ventolin, Norvasc 5 mg daily, aspirin 81 mg daily, Klonopin 0.5 mg b.i.d., Lexapro 5 mg daily, Pepcid 20 mg daily, heparin 5000 units subcu q. 8 hours, Lopressor 50 mg p.o. b.i.d., Flagyl 500 mg p.o. q. 8 hours, Singulair 10 mg p.o. daily, multivitamin 1 tab daily, trazodone 5 mg p.o. at bedtime. LABORATORY DATA: Shown this morning, WBC 7.9, hemoglobin 14.1, hematocrit 42 and platelets 136. Sodium 135, potassium 4.1, chloride 105, bicarb 21, BUN 28, creatinine 1.5, glucose 79, calcium 10.0. Stool: C. diff negative from yesterday. ASSESSMENT AND PLAN: Elderly female with history of hypertension, hyperlipidemia, anxiety, depression, asthma, chronic low back pain, and sciatica admitted for acute kidney injury, dehydration, Clostridium difficile colitis, on Flagyl, with Clostridium difficile negative. The patient claims clinically her diarrhea got worse today. We will monitor the patient today. We will continue with Flagyl p.o. We will consider p.o. if her diarrhea is worse. Her renal function stabilized. Continue with current medication. Now, the patient is requesting to go for subacute rehab in [place]. We will discuss with the patient's son, and we will request social media content manager for possible subacute placement in [place]. We will continue with IV hydration. Repeat labs in a.m. Angela Hickey MD
[2017-01-08 06:38] LABS: CALCIUM 10.7 mg/dl (8.6-10.4); POTASSIUM 4.2 mmol/L (3.6-5.2)
[2017-01-08 08:56] VITALS: RESP 20
[2017-01-08] MEDS: Vancomycin 125 MG/5 ML SOLN (ORAL/RECTAL) PO SCH ×4 (10:00→21:58)
--- NOTE | 2017-01-08 10:32 | CP.PCM.PN ---
Subjective - Date & Time of Evaluation Date of Evaluation: 01/08/17 Time of Evaluation: 10:30 - Subjective Subjective: Patient states that the bowel movements are less frequent, once or twice a day, and more formed, though the nurse's notes document four bowel movements yesterday, with only one today. She denies having abdominal pain, nausea or vomiting. Objective - Vital Signs/Intake and Output Vital Signs (last 24 hours): Temp Pulse Resp BP Pulse Ox 98.5 F 67 20 152/81 H 99 01/08/17 08:00 01/08/17 08:00 01/08/17 08:00 01/08/17 08:00 01/08/17 08:00 Intake and Output: 01/08/17 01/08/17 06:59 18:59 Intake Total 740 Balance 740 - Medications Medications: Current Medications Albuterol (Ventolin Hfa 90 Mcg/Actuation (8 G)) 1 puff INH RQ6 PRN PRN Reason: Shortness of Breath Amlodipine Besylate (Norvasc) 5 mg PO DAILY [facility] Last Admin: 01/07/17 09:42 Dose: 5 mg Aspirin (Aspirin Chewable) 81 mg PO DAILY [facility] Last Admin: 01/07/17 09:41 Dose: 81 mg Clonazepam (Klonopin) 0.5 mg PO BID [facility] Last Admin: 01/07/17 19:32 Dose: 0.5 mg Escitalopram Oxalate (Lexapro) 5 mg PO DAILY [facility] Last Admin: 01/07/17 09:42 Dose: 5 mg Famotidine (Pepcid) 20 mg PO DAILY [facility] Last Admin: 01/07/17 09:41 Dose: 20 mg Metoprolol Tartrate (Lopressor) 50 mg PO BID [facility] Last Admin: 01/07/17 19:32 Dose: 50 mg Montelukast Sodium (Singulair) 10 mg PO DAILY [facility] Last Admin: 01/07/17 09:41 Dose: 10 mg Multivitamins (Hexavitamin) 1 tab PO DAILY [facility] Last Admin: 01/07/17 09:41 Dose: 1 tab Trazodone HCl (Desyrel) 50 mg PO HS [facility] Last Admin: 01/07/17 22:22 Dose: 50 mg Vancomycin HCl (Vancocin (Oral Or Rectal Use)) 125 mg PO QID [facility] - Labs Labs: 01/07/17 07:01 01/08/17 06:16 - Constitutional Appears: No Acute Distress - Head Exam Head Exam: ATRAUMATIC, NORMOCEPHALIC - Eye Exam Eye Exam: EOMI, PERRL - Neck Exam Neck Exam: absent: Lymphadenopathy, Thyromegaly - Respiratory Exam Respiratory Exam: NORMAL BREATHING PATTERN. absent: Rales, Rhonchi, Wheezes - Cardiovascular Exam Cardiovascular Exam: REGULAR RHYTHM, +S1, +S2. absent: Gallop, Rubs, Murmur - GI/Abdominal Exam GI & Abdominal Exam: Soft, Normal Bowel Sounds. absent: Tenderness, Mass, Organomegaly - Rectal Exam Rectal Exam: Deferred - Extremities Exam Extremities Exam: absent: Calf Tenderness, Pedal Edema Assessment and Plan (1) Clostridium difficile diarrhea Assessment & Plan: Patient feels better, but had four stools yesterday. Will switch from metronidazole to vancomycin for the next ten days. Status: Acute
--- NOTE | 2017-01-08 11:49 | CP.PCM.PN ---
Subjective - Date & Time of Evaluation Date of Evaluation: 01/08/17 Time of Evaluation: 11:47 - Subjective Subjective: Stools more formed Afebrile now. No SOB, n, v, CPs Creat increased to 1.8 Continued rx for c.diff ongoing Objective - Vital Signs/Intake and Output Vital Signs (last 24 hours): Temp Pulse Resp BP Pulse Ox 98.5 F 67 20 152/81 H 99 01/08/17 08:00 01/08/17 08:00 01/08/17 08:00 01/08/17 08:00 01/08/17 08:00 Intake and Output: 01/08/17 01/08/17 06:59 18:59 Intake Total 740 Balance 740 - Medications Medications: Current Medications Albuterol (Ventolin Hfa 90 Mcg/Actuation (8 G)) 1 puff INH RQ6 PRN PRN Reason: Shortness of Breath Amlodipine Besylate (Norvasc) 5 mg PO DAILY [facility] Last Admin: 01/07/17 09:42 Dose: 5 mg Aspirin (Aspirin Chewable) 81 mg PO DAILY [facility] Last Admin: 01/07/17 09:41 Dose: 81 mg Clonazepam (Klonopin) 0.5 mg PO BID [facility] Last Admin: 01/07/17 19:32 Dose: 0.5 mg Escitalopram Oxalate (Lexapro) 5 mg PO DAILY [facility] Last Admin: 01/07/17 09:42 Dose: 5 mg Famotidine (Pepcid) 20 mg PO DAILY [facility] Last Admin: 01/07/17 09:41 Dose: 20 mg Metoprolol Tartrate (Lopressor) 50 mg PO BID [facility] Last Admin: 01/07/17 19:32 Dose: 50 mg Montelukast Sodium (Singulair) 10 mg PO DAILY [facility] Last Admin: 01/07/17 09:41 Dose: 10 mg Multivitamins (Hexavitamin) 1 tab PO DAILY [facility] Last Admin: 01/07/17 09:41 Dose: 1 tab Trazodone HCl (Desyrel) 50 mg PO HS [facility] Last Admin: 01/07/17 22:22 Dose: 50 mg Vancomycin HCl (Vancocin (Oral Or Rectal Use)) 125 mg PO QID [facility] - Labs Labs: 01/07/17 07:01 01/08/17 06:16 - Constitutional Appears: No Acute Distress, Chronically Ill - Head Exam Head Exam: ATRAUMATIC, NORMAL INSPECTION - Eye Exam Eye Exam: EOMI, Normal appearance - Neck Exam Neck Exam: Normal Inspection. absent: Tenderness - Respiratory Exam Respiratory Exam: Clear to Ausculation Bilateral, NORMAL BREATHING PATTERN - Cardiovascular Exam Cardiovascular Exam: REGULAR RHYTHM, +S1 - GI/Abdominal Exam GI & Abdominal Exam: Soft. absent: Tenderness - Extremities Exam Extremities Exam: Normal Inspection. absent: Tenderness - Neurological Exam Neurological Exam: Alert, CN II-XII Intact - Skin Skin Exam: Dry, Warm Assessment and Plan (1) Watery diarrhea syndrome Status: Acute (2) Dehydration Status: Acute (3) Essential (primary) hypertension Status: Acute (4) Clostridium difficile diarrhea Status: Acute (5) CRUZ (acute kidney injury) Status: Acute - Assessment and Plan (Free Text) Plan: Continue c.diff rx Encourage oral fluid intake follow up chemistries
--- NOTE | 2017-01-08 13:16 | CP.PCM.PN ---
Subjective - Date & Time of Evaluation Date of Evaluation: 01/08/17 Time of Evaluation: 13:00 - Subjective Subjective: Progress note dictated #[id number] Objective - Vital Signs/Intake and Output Vital Signs (last 24 hours): Temp Pulse Resp BP Pulse Ox 98.5 F 69 20 152/81 H 98 01/08/17 08:00 01/08/17 12:41 01/08/17 08:00 01/08/17 08:00 01/08/17 12:41 Intake and Output: 01/08/17 01/08/17 06:59 18:59 Intake Total 740 Balance 740 - Medications Medications: Current Medications Albuterol (Ventolin Hfa 90 Mcg/Actuation (8 G)) 1 puff INH RQ6 PRN PRN Reason: Shortness of Breath Amlodipine Besylate (Norvasc) 5 mg PO DAILY [facility] Last Admin: 01/07/17 09:42 Dose: 5 mg Aspirin (Aspirin Chewable) 81 mg PO DAILY [facility] Last Admin: 01/07/17 09:41 Dose: 81 mg Clonazepam (Klonopin) 0.5 mg PO BID [facility] Last Admin: 01/07/17 19:32 Dose: 0.5 mg Escitalopram Oxalate (Lexapro) 5 mg PO DAILY [facility] Last Admin: 01/07/17 09:42 Dose: 5 mg Famotidine (Pepcid) 20 mg PO DAILY [facility] Last Admin: 01/07/17 09:41 Dose: 20 mg Metoprolol Tartrate (Lopressor) 50 mg PO BID [facility] Last Admin: 01/07/17 19:32 Dose: 50 mg Montelukast Sodium (Singulair) 10 mg PO DAILY [facility] Last Admin: 01/07/17 09:41 Dose: 10 mg Multivitamins (Hexavitamin) 1 tab PO DAILY [facility] Last Admin: 01/07/17 09:41 Dose: 1 tab Trazodone HCl (Desyrel) 50 mg PO HS [facility] Last Admin: 01/07/17 22:22 Dose: 50 mg Vancomycin HCl (Vancocin (Oral Or Rectal Use)) 125 mg PO QID [facility] - Labs Labs: 01/07/17 07:01 01/08/17 06:16
[2017-01-08] MEDS: Multiple Vitamins Tab PO SCH (14:05)
--- NOTE | 2017-01-08 14:17 | PCM.PYCHPN ---
Psychiatric Progress Note - Psychiatric Progress Note Patient seen today, length of contact: 15 Patient Chief Complaint: "I am feeling better" Problems Identified/Issues Discussed: The pt is seen, chart reviewed, case discussed with staff. The pt is compliant with medications and reports no side-effects. Patient says she is sleeping okay and feeling better. Patient has no SI/ HI. Symptoms are improving. After care discussed, support and psychoeducation given. Medication Change: No Medical Record Reviewed: Yes Mental Status Examination - Cognitive Function Orientation: Person, Place, Situation, Time - Mood Mood: Depressed, Anxious - Affect Affect: Broad - Speech Speech: Appropriate - Formal Thought Process Formal Thought Process: No Impairment - Suicidal Ideation Suicidal Ideation: No - Homicidal Ideation Homicidal Ideation: No Goal/Treatment Plan - Goal/Treatment Plan Progress Toward Problem(s) and Goals/Treatment Plan: Major depressive disorder single episode mild CBT Psychoeducation Supportive therapy con't home med of clonazepam 0.5mg po bid con't home med of trazadone 50mg po hs continue escitalopram 5mg po daily Psych signing off on patient, please re-consult if needed.
--- NOTE | 2017-01-09 00:05 | PN ---
DATE: 01/08/2017 SUBJECTIVE: The patient was seen and examined at bedside. The patient is feeling slightly better than yesterday, less diarrhea today. Denies any other complaint. PHYSICAL EXAMINATION GENERAL: An elderly female, lying in bed in no acute distress. VITAL SIGNS: Blood pressure 131/69, pulse 73, respirations 20, temperature 98.5 degrees Fahrenheit and O2 saturations 97% on room air. HEENT: Pupils are equal, round and reacting to light and accommodation. Extraocular muscles intact. No icterus. No pallor. No oral thrush. No pharyngeal congestion. NECK: Supple. No JVD. LUNGS: Bilateral vesicular breath sounds. No wheezing. No rhonchi. CVS: S1 and S2 present and regular. ABDOMEN: Soft and nontender. Bowel sounds are present. No guarding. No rigidity. No rebound, or tenderness noted. FELLER OPERATOR: Alert, awake, and oriented x3. No focal deficits noted. EXTREMITIES: No edema. Palpable peripheral pulses. MEDICATIONS: Include Ventolin,Norvasc 5 mg daily, aspirin 81 mg daily, Klonopin 0.5 mg b.i.d., Lexapro 5 mg daily, Pepcid 20 mg daily, Lopressor 50 mg p.o., b.i.d., Singulair 10 mg daily, multivitamin 1 tab daily, trazodone 50 mg p.o at bedtime, and vancomycin 125 mg p.o. q.i.d. LABORATORY DATA: Labs from this morning; sodium 138, potassium 4.2, chloride 107, bicarbonate 24, BUN 27, creatinine 1.8, glucose 75, calcium 10.7. C-diff negative. ASSESSMENT AND PLAN: Elderly female with history of hypertension, asthma, anxiety, and depression admitted for clostridium difficile colitis, acute kidney injury with persistent diarrhea on Flagyl, even though clostridium difficile is negative. The patient just started on vancomycin secondary to persistent diarrhea. Her renal function is slightly worse than yesterday. We will continue with IV fluids, repeat electrolytes in a.m. The patient is now willing to go to subacute rehab at [facility]. environmental field services technician to make arrangements for possible transfer to subacute rehab when bed available. Angela Hickey MD [facility] # [id number]
[2017-01-09 08:22] LABS: POTASSIUM 4.3 mmol/L (3.6-5.2)
[2017-01-09 08:25] LABS: CALCIUM 10.7 mg/dl (8.6-10.4)
[2017-01-09] MEDS: Multiple Vitamins Tab PO SCH (10:16)
[2017-01-09] MEDS: Vancomycin 125 MG/5 ML SOLN (ORAL/RECTAL) PO SCH ×3 (10:26→17:49)
--- NOTE | 2017-01-09 13:39 | CP.PCM.PN ---
Subjective - Date & Time of Evaluation Date of Evaluation: 01/09/17 Time of Evaluation: 13:35 - Subjective Subjective: seen and examined labs reviewed c diff diarrhea, still w/ loose stool Objective - Vital Signs/Intake and Output Vital Signs (last 24 hours): Temp Pulse Resp BP Pulse Ox 98.4 F 73 20 155/77 H 95 01/09/17 08:00 01/09/17 08:00 01/09/17 08:00 01/09/17 08:00 01/09/17 08:00 Intake and Output: 01/09/17 01/09/17 06:59 18:59 Intake Total 300 400 Balance 300 400 - Medications Medications: Current Medications Albuterol (Ventolin Hfa 90 Mcg/Actuation (8 G)) 1 puff INH RQ6 PRN PRN Reason: Shortness of Breath Amlodipine Besylate (Norvasc) 5 mg PO DAILY [facility] Last Admin: 01/09/17 10:18 Dose: 5 mg Aspirin (Aspirin Chewable) 81 mg PO DAILY [facility] Last Admin: 01/09/17 10:17 Dose: 81 mg Clonazepam (Klonopin) 0.5 mg PO BID [facility] Last Admin: 01/09/17 10:16 Dose: 0.5 mg Escitalopram Oxalate (Lexapro) 5 mg PO DAILY [facility] Last Admin: 01/09/17 10:17 Dose: 5 mg Famotidine (Pepcid) 20 mg PO DAILY [facility] Last Admin: 01/09/17 10:17 Dose: 20 mg Metoprolol Tartrate (Lopressor) 50 mg PO BID [facility] Last Admin: 01/09/17 10:18 Dose: 50 mg Montelukast Sodium (Singulair) 10 mg PO DAILY [facility] Last Admin: 01/09/17 10:16 Dose: 10 mg Multivitamins (Hexavitamin) 1 tab PO DAILY [facility] Last Admin: 01/09/17 10:16 Dose: Not Given Trazodone HCl (Desyrel) 50 mg PO HS [facility] Last Admin: 01/08/17 21:58 Dose: 50 mg Vancomycin HCl (Vancocin (Oral Or Rectal Use)) 125 mg PO QID [facility] Last Admin: 01/09/17 10:26 Dose: 125 mg - Labs Labs: 01/07/17 07:01 01/09/17 07:58 - Constitutional Appears: Non-toxic, No Acute Distress, Chronically Ill - Head Exam Head Exam: NORMAL INSPECTION - Eye Exam Eye Exam: Normal appearance - ENT Exam ENT Exam: Mucous Membranes Moist, Normal Exam - Neck Exam Neck Exam: Normal Inspection - Respiratory Exam Respiratory Exam: Decreased Breath Sounds, NORMAL BREATHING PATTERN - Cardiovascular Exam Cardiovascular Exam: REGULAR RHYTHM, RRR - GI/Abdominal Exam GI & Abdominal Exam: Distended, Soft, Normal Bowel Sounds - Back Exam Back Exam: NORMAL INSPECTION Assessment and Plan (1) CRUZ (acute kidney injury) Status: Acute (2) Clostridium difficile diarrhea Status: Acute (3) Dehydration Status: Acute (4) Essential (primary) hypertension Status: Acute - Assessment and Plan (Free Text) Assessment: rx for c diff creatinine stabilizing, consider iv fluids if rising bp acceptable
[2017-01-09 16:01] VITALS: BP 138/73; PULSE 65; TEMP 98.2; O2SAT 97
--- NOTE | 2017-01-09 16:51 | CP.PCM.PN ---
Subjective - Date & Time of Evaluation Date of Evaluation: 01/09/17 Time of Evaluation: 16:00 - Subjective Subjective: Discharge summary dictated #[id number] Objective - Vital Signs/Intake and Output Vital Signs (last 24 hours): Temp Pulse Resp BP Pulse Ox 98.2 F 65 20 138/73 97 01/09/17 15:00 01/09/17 15:00 01/09/17 15:00 01/09/17 15:00 01/09/17 15:00 Intake and Output: 01/09/17 01/09/17 06:59 18:59 Intake Total 300 400 Balance 300 400 - Medications Medications: Current Medications Albuterol (Ventolin Hfa 90 Mcg/Actuation (8 G)) 1 puff INH RQ6 PRN PRN Reason: Shortness of Breath Amlodipine Besylate (Norvasc) 5 mg PO DAILY [facility] Last Admin: 01/09/17 10:18 Dose: 5 mg Aspirin (Aspirin Chewable) 81 mg PO DAILY [facility] Last Admin: 01/09/17 10:17 Dose: 81 mg Clonazepam (Klonopin) 0.5 mg PO BID [facility] Last Admin: 01/09/17 10:16 Dose: 0.5 mg Escitalopram Oxalate (Lexapro) 5 mg PO DAILY [facility] Last Admin: 01/09/17 10:17 Dose: 5 mg Famotidine (Pepcid) 20 mg PO DAILY [facility] Last Admin: 01/09/17 10:17 Dose: 20 mg Metoprolol Tartrate (Lopressor) 50 mg PO BID [facility] Last Admin: 01/09/17 10:18 Dose: 50 mg Montelukast Sodium (Singulair) 10 mg PO DAILY [facility] Last Admin: 01/09/17 10:16 Dose: 10 mg Multivitamins (Hexavitamin) 1 tab PO DAILY [facility] Last Admin: 01/09/17 10:16 Dose: Not Given Trazodone HCl (Desyrel) 50 mg PO HS [facility] Last Admin: 01/08/17 21:58 Dose: 50 mg Vancomycin HCl (Vancocin (Oral Or Rectal Use)) 125 mg PO QID [facility] Last Admin: 01/09/17 13:51 Dose: 125 mg - Labs Labs: 01/07/17 07:01 01/09/17 07:58
--- NOTE | 2017-01-10 22:23 | DS ---
DISCHARGE DIAGNOSES: 1. Clostridium difficile colitis. 2. Acute kidney injury on chronic kidney disease. 3. Status post hypokalemia. 4. Hypertension. 5. Asthma. 6. Anxiety. 7. Depression. 8. Chronic diarrhea, improving. HISTORY OF PRESENT ILLNESS: Ms. Gonzalez is a 71-year-old female with past medical history of hypertension, chronic low back pain with sciatica, depression, anxiety, who has been following up with doctors at [place]. Admitted to the hospital with complaints of chronic persistent diarrhea for more than one month and she was found to be having elevated BUN and creatinine. The patient is being admitted for further management. Today, the patient is feeling much better. Denies any headache, dizziness. Denies any chest pain, shortness of breath, or wheezing. Denies any nausea, vomiting, abdominal pain, diarrhea, or constipation,but her bowel movement are loose. Denies any new complaints. Denies any urinary complaints. Denies any other neurologic symptoms. PHYSICAL EXAMINATION: GENERAL: An elderly female, lying in bed, in no acute distress. VITAL SIGNS: Blood pressure 138/73, pulse 65, respirations 20, temperature 98.2 degrees Fahrenheit, and O2 saturation 97% on room air. HEENT: Pupils are equal, round, and reactive to light and accommodation. Extraocular muscles are intact. No icterus. No pallor. No oral thrush. No pharyngeal congestion. NECK: Supple. No JVD. No thyromegaly. CHEST: Moving equally bilaterally on respiration. LUNGS: Bilateral vesicular breath sounds. No wheezing. No rhonchi. CARDIOVASCULAR: S1 and S2 present, regular. ABDOMEN: Soft and nontender. Bowel sounds present. No guarding. No rigidity. No rebound tenderness noted. CENTRAL NERVOUS SYSTEM: Alert, awake, and oriented x3. No focal deficits noted. EXTREMITIES: No edema. Palpable peripheral pulses. LABORATORY DATA: Labs include sodium 138, potassium 4.3, chloride 105, bicarbonate 24, BUN 26, creatinine 1.6, glucose 88, calcium 10.7. C. diff toxin negative on 01/06/2017, but on admission, it was positive. On 01/07/2017, WBC 7.9, hemoglobin 14.1, hematocrit 42, platelets 136. Bladder ultrasound shows bilateral renal cysts. Stool culture is negative. HOSPITAL COURSE: The patient was admitted to the hospital for acute kidney injury on chronic kidney disease and for diarrhea, the patient was started on IV fluids. All her ARABELLA inhibitors and diuretics were held. The patient was seen by Renal. The patient was started on hydration, with which her renal function improved and decreased to 1.5-1.6, probably that might have been her baseline creatinine. The patient was found to be having C. diff colitis. The patient was started on Flagyl. Her diarrhea improved, but the patient is still complaining of persistent increased bowel movements, for which the patient was evaluated by GI. Flagyl was switched over to vancomycin by GI. The patient was evaluate by Psychiatry for her psychiatric medication and depression. Advised to continue with current medication. As the patient is clinically improving and feeling better, the patient was willing to go to subacute rehab, but the patient's son has 14 steps to walk upstairs. As the patient is, otherwise, hemodynamically stable, the patient is being discharged to subacute rehab. Discussed with the patient and the patient's son at length for 45 minutes at bedside explaining all the questions and concerns that they had regarding subacute rehab and discharge. Clarified all their questions and concerns. senior facilities manager was also at the bedside at the time of discussion. Advised the patient to return to ED if any diarrhea recurs or worsens. CONDITION UPON DISCHARGE: The patient is alert, awake and oriented x3 and hemodynamically stable at the time of discharge. DISCHARGE DIET: Low sodium, low cholesterol, heart healthy diet. ACTIVITY: As tolerated. DISCHARGE INSTRUCTIONS: Follow up with PMD, follow up with Renal, follow up with GI, follow up with Psychiatry. DISCHARGE MEDICATIONS: ProAir, Norvasc 5 mg daily, aspirin 81 mg daily, Klonopin 0.5 mg b.i.d., Lopressor 50 mg b.i.d., Myrbetriq 25 mg daily, Singulair 10 mg daily, multivitamin 1 tab daily, trazodone 50 mg daily, and vancomycin 125 mg p.o. four times a day for 10 days. Angela Hickey MD
== END 2017-01-09 21:30 | DRG 372 ==
LOC: C.ER 15:41 → C.9E 20:55 → C.3T 23:55
PROVIDERS: ADMIT Internal Medicine; ATTEND Internal Medicine
DX: A04.7 Enterocolitis due to Clostridium difficile (principal); N17.9 Acute kidney failure, unspecified; N18.9 Chronic kidney disease, unspecified; I12.9 Hypertensive chronic kidney disease with stage 1 through stage 4 chronic kidney disease, or unspecified chronic kidney disease; E87.6 Hypokalemia; J45.909 Unspecified asthma, uncomplicated; F41.9 Anxiety disorder, unspecified; F32.9 Major depressive disorder, single episode, unspecified; M54.40 Lumbago with sciatica, unspecified side; G89.29 Other chronic pain

== ENCOUNTER 2017-03-09 12:53 | Inpatient (IN) | payer MEDICARE, MEDICAID ==
[2017-03-09] MEDS ORDERED: Sodium Chloride 0.9% 1,000 ML IV STA (14:15)
--- NOTE | 2017-03-09 14:40 | C.PDOC ---
Time Seen by Provider: 03/09/17 13:41 Chief Complaint (Nursing): Medical Clearance Past Medical History Vital Signs: Last Vital Signs Temp 97.5 F L 03/09/17 13:16 Pulse 66 03/09/17 13:16 Resp 20 03/09/17 13:16 BP 135/90 03/09/17 13:16 Pulse Ox 99 03/09/17 13:16 - Medical History PMH: Anxiety, Depression, HTN Denies: Chronic Kidney Disease Surgical History: Cholecystectomy Family History: States: Unknown Family Hx - Social History Hx Alcohol Use: No Hx Substance Use: No - Immunization History Hx Tetanus Toxoid Vaccination: No Hx Influenza Vaccination: No Hx Pneumococcal Vaccination: No ED Course And Treatment O2 Sat by Pulse Oximetry: 99 Disposition - Disposition Forms: [employer] ([place])
[2017-03-09 15:00] LABS: BASO # 0.1 K/uL (0.0-0.2); BASO % 1.8 % (0.0-2.0); EOS # 0.3 K/uL (0.0-0.7); EOS % 3.3 % (0.0-4.0); HEMATOCRIT 44.4 % (34.0-47.0); LYMPH # 2.1 K/uL (1.0-4.3); LYMPH % 25.6 % (20.0-40.0); MEAN CELL VOLUME 92.4 fL (81.0-99.0); MEAN CORPUSCULAR HEMOGLOBIN 30.3 pg (27.0-31.0); MEAN CORPUSCULAR HGB CONC 32.8 g/dL (33.0-37.0); MEAN PLATELET VOLUME 10.1 fL (7.2-11.7); MONO # 0.6 K/uL (0.0-0.8); MONO % 7.6 % (0.0-10.0); RED CELL DISTRIBUTION WIDTH 15.8 % (11.5-14.5); WHITE BLOOD COUNT 8.1 K/uL (4.8-10.8)
[2017-03-09 15:08] LABS: ALB/GLOB RATIO 1.1 (1.0-2.1); BILIRUBIN,TOTAL 1.1 mg/dL (0.2-1.3); TOTAL PROTEIN 8.3 g/dL (6.3-8.3)
[2017-03-09 15:09] LABS: CALCIUM 10.7 mg/dl (8.6-10.4); POTASSIUM 5.8 mmol/L (3.6-5.2); URIC ACID 9.9 mg/dL (2.2-7.5)
[2017-03-09] MEDS ORDERED: Enoxaparin 40 mg Syringe SC STA (16:38)
[2017-03-09] MEDS ORDERED: Enoxaparin 80 mg Syringe ONE (16:57)
--- NOTE | 2017-03-09 17:13 | C.PDOC ---
Time Seen by Provider: 03/09/17 13:41 Chief Complaint (Nursing): Medical Clearance Past Medical History Vital Signs: Last Vital Signs Temp 97.5 F L 03/09/17 13:16 Pulse 66 03/09/17 13:16 Resp 20 03/09/17 13:16 BP 135/90 03/09/17 13:16 Pulse Ox 99 03/09/17 13:16 - Medical History PMH: Anxiety, Depression, HTN Denies: Chronic Kidney Disease Surgical History: Cholecystectomy Family History: States: Unknown Family Hx - Social History Hx Alcohol Use: No Hx Substance Use: No - Immunization History Hx Tetanus Toxoid Vaccination: No Hx Influenza Vaccination: No Hx Pneumococcal Vaccination: No ED Course And Treatment - Laboratory Results Result Diagrams: 03/09/17 14:46 03/09/17 14:46 O2 Sat by Pulse Oximetry: 99 Disposition - Disposition Disposition: HOSPITALIZED Disposition Time: 17:12 Condition: FAIR Forms: [employer] ([place]) - Clinical Impression Clinical Impression: Renal insufficiency, DVT of leg (deep venous thrombosis)
--- NOTE | 2017-03-09 17:13 | C.PDOC ---
History Of Present Illness 71 y/o female presents to ED for evaluation of left leg pain. Pt states that she was admitted here 1.5 months ago for C-diff, was found to have renal insufficiencies, and was discharged to a rehab facility. Patient developed pain in the right foot after discharge from rehab and was told she has gout, and was given Colchicin and Prednisone, and felt better. Patient now complaining of left leg pain for the last 3 days, and was seen at urgent care who gave her Allopurinol which she has been taking without improvement. Otherwise, denies change in sensation, chest pain, shortness of breath, or fever. Time Seen by Provider: 03/09/17 13:41 Chief Complaint (Nursing): Medical Clearance History Per: Patient History/Exam Limitations: no limitations Onset/Duration Of Symptoms: Days Current Symptoms Are (Timing): Still Present Recent travel outside of the [place]: No Additional History Per: Patient Past Medical History Reviewed: Historical Data, Nursing Documentation, Vital Signs Vital Signs: Last Vital Signs Temp 97.5 F L 03/09/17 13:16 Pulse 66 03/09/17 13:16 Resp 20 03/09/17 13:16 BP 135/90 03/09/17 13:16 Pulse Ox 99 03/09/17 17:33 - Medical History PMH: Anxiety, Depression, HTN Denies: Chronic Kidney Disease Surgical History: Cholecystectomy Family History: States: Unknown Family Hx - Social History Hx Alcohol Use: No Hx Substance Use: No - Immunization History Hx Tetanus Toxoid Vaccination: No Hx Influenza Vaccination: No Hx Pneumococcal Vaccination: No Review Of Systems Except As Marked, All Systems Reviewed And Found Negative. Constitutional: Negative for: Fever, Chills Cardiovascular: Negative for: Chest Pain, Palpitations Respiratory: Negative for: Cough, Shortness of Breath Musculoskeletal: Positive for: Leg Pain (left) Skin: Negative for: Rash, Bruising Neurological: Negative for: Weakness, Numbness Physical Exam - Physical Exam Appears: Non-toxic, No Acute Distress Skin: Normal Color, Warm, Dry Head: Atraumatic, Normacephalic Eye(s): bilateral: Normal Inspection Oral Mucosa: Moist Neck: Supple Chest: Symmetrical Cardiovascular: Rhythm Regular, No Murmur Respiratory: Normal Breath Sounds, No Rales, No Rhonchi, No Wheezing Extremity: Normal ROM, No Tenderness, Calf Tenderness (left), Capillary Refill ( <2 secs.), No Deformity, Swelling (left lower extremity, and mild left foot, no warmth, erythema, or joint swelling) Extremity: Bilateral: Atraumatic Pulses: Left Dorsalis Pedis: Normal, Right Dorsalis Pedis: Normal Neurological/Psych: Oriented x3, Normal Speech, Normal Motor, Normal Sensation ED Course And Treatment - Laboratory Results Result Diagrams: 03/09/17 14:46 03/09/17 14:46 O2 Sat by Pulse Oximetry: 99 (RA) Pulse Ox Interpretation: Normal Progress Note: Blood work, UA, LLE doppler ordered and reviewed. Doppler was positive for DVT in LLE. Patient was given IV fluids, and Lovenox. Case discussed with Dr. Demetrice Harry who accepts patient under his service. Disposition - Disposition Disposition: HOSPITALIZED Disposition Time: 17:12 Condition: FAIR - Clinical Impression Clinical Impression: Renal insufficiency, DVT of leg (deep venous thrombosis) - PA / TRACK LABORER / Resident Statement MD/DO has reviewed & agrees with the documentation as recorded. - Scribe Statement The provider has reviewed the documentation as recorded by the Scribe Anum Harry All medical record entries made by the Jovanibyovany were at my direction and personally dictated by me. I have reviewed the chart and agree that the record accurately reflects my personal performance of the history, physical exam, medical decision making, and the department course for this patient. I have also personally directed, reviewed, and agree with the discharge instructions and disposition. Decision To Admit - Pt Status Changed To: Hospital Disposition Of: Inpatient - Admit Certification Admit to Inpatient:: After my assessment, the patient will require hospitalization for at least two midnights. This is because of the severity of symptoms shown, intensity of services needed, and/or the medical risk in this patient being treated as an outpatient. - InPatient: Physician Admission Certification: I certify that this patient requires 2 or more midnights of care for the following reason:: patient with DVT will need more than 2 days of anticoagulation - . Bed Request Type: Regular Admitting Physician: Merary Harry Patient Diagnosis: Renal insufficiency, DVT of leg (deep venous thrombosis)
[2017-03-09 17:27] LABS: RBC URINE 1 /hpf (0-3); URINE BACTERIA RARE (<OCC); URINE BILIRUBIN NEGATIVE (NEGATIVE); URINE BLOOD NEGATIVE (NEGATIVE); URINE COLOR Straw (YELLOW); URINE GLUCOSE (UA) NORMAL (Normal); URINE KETONE NEGATIVE (NEGATIVE); URINE LEUKOCYTE ESTERASE TRACE Leu/uL (Negative); URINE PROTEIN 2+ mg/dL (NEGATIVE); URINE UROBILINOGEN NORMAL mg/dL (0.2-1.0); WBC URINE 23 /hpf (0-5)
--- NOTE | 2017-03-09 18:48 | CP.PCM.HP ---
Present on Admission - Present on Admission Any Indicators Present on Admission: No Past Patient History - Past Medical History & Family History Past Medical History?: Yes - Past Social History Smoking Status: Heavy Smoker > 10 Cigarettes Daily - CARDIAC Hx Hypertension: Yes - PULMONARY Hx Respiratory Disorders: No - NEUROLOGICAL Hx Neurological Disorder: No - HEENT Hx HEENT Problems: No - RENAL Hx Chronic Kidney Disease: No - ENDOCRINE/METABOLIC Hx Endocrine Disorders: No - HEMATOLOGICAL/ONCOLOGICAL Hx Blood Disorders: No - INTEGUMENTARY Hx Dermatological Problems: No - MUSCULOSKELETAL/RHEUMATOLOGICAL Hx Falls: No - GASTROINTESTINAL Hx Gastrointestinal Disorders: No - GENITOURINARY/GYNECOLOGICAL Hx Genitourinary Disorders: No - PSYCHIATRIC Hx Anxiety: Yes Hx Depression: Yes Hx Substance Use: No - SURGICAL HISTORY Hx Cholecystectomy: Yes - ANESTHESIA Hx Anesthesia: Yes Hx Anesthesia Reactions: No Hx Malignant Hyperthermia: No Meds Allergies/Adverse Reactions: Allergies Allergy/AdvReac Type Severity Reaction Status Date / Time No Known Allergies Allergy Verified 01/03/17 16:03 Physical Exam - Constitutional Appears: Well - Head Exam Head Exam: ATRAUMATIC, NORMAL INSPECTION, NORMOCEPHALIC - Eye Exam Eye Exam: EOMI, Normal appearance, PERRL Pupil Exam: NORMAL ACCOMODATION, PERRL - ENT Exam ENT Exam: Mucous Membranes Moist, Normal Exam - Neck Exam Neck exam: Positive for: Normal Inspection - Respiratory Exam Respiratory Exam: Decreased Breath Sounds - Cardiovascular Exam Cardiovascular Exam: REGULAR RHYTHM, +S1, +S2 - GI/Abdominal Exam GI & Abdominal Exam: Soft. absent: Diminished Bowel Sounds - Rectal Exam Rectal Exam: Deferred Results - Vital Signs Recent Vital Signs: Last Vital Signs Temp 97.7 F 03/09/17 18:35 Pulse 68 03/09/17 18:35 Resp 18 03/09/17 18:35 BP 145/84 03/09/17 18:35 Pulse Ox 96 03/09/17 18:35 - Labs Result Diagrams: 03/09/17 14:46 03/09/17 14:46 Labs: Laboratory Results - last 24 hr 03/09/17 03/09/17 03/09/17 14:46 14:46 14:46 WBC 8.1 RBC 4.80 Hgb 14.6 Hct 44.4 MCV 92.4 MCH 30.3 MCHC 32.8 L RDW 15.8 H Plt Count 175 MPV 10.1 Neut % (Auto) 61.7 Lymph % (Auto) 25.6 Alexander % (Auto) 7.6 Eos % (Auto) 3.3 Baso % (Auto) 1.8 Neut # 5.0 Lymph # 2.1 Alexander # 0.6 Eos # 0.3 Baso # 0.1 PT 10.8 INR 1.0 APTT 28 Sodium 138 Potassium 5.8 H Chloride 103 Carbon Dioxide 25 Anion Gap 16 BUN 42 H Creatinine 1.6 H Est GFR ( Amer) 38 Est GFR (Non-Af Amer) 32 Random Glucose 81 Uric Acid 9.9 H Calcium 10.7 H Total Bilirubin 1.1 AST 35 ALT 23 Alkaline Phosphatase 65 Total Protein 8.3 Albumin 4.4 Globulin 4.0 H Albumin/Globulin Ratio 1.1 Urine Color Urine Clarity Urine pH Ur Specific [place] Urine Protein Urine Glucose (UA) Urine Ketones Urine Blood Urine Nitrate Urine Bilirubin Urine Urobilinogen Ur Leukocyte Esterase Urine WBC (Auto) Urine RBC (Auto) Urine Bacteria 03/09/17 17:17 WBC RBC Hgb Hct MCV MCH MCHC RDW Plt Count MPV Neut % (Auto) Lymph % (Auto) Alexander % (Auto) Eos % (Auto) Baso % (Auto) Neut # Lymph # Alexander # Eos # Baso # PT INR APTT Sodium Potassium Chloride Carbon Dioxide Anion Gap BUN Creatinine Est GFR ( Amer) Est GFR (Non-Af Amer) Random Glucose Uric Acid Calcium Total Bilirubin AST ALT Alkaline Phosphatase Total Protein Albumin Globulin Albumin/Globulin Ratio Urine Color Straw Urine Clarity Clear Urine pH 6.0 Ur Specific [place] 1.013 Urine Protein 2+ H Urine Glucose (UA) Normal Urine Ketones Negative Urine Blood Negative Urine Nitrate Negative Urine Bilirubin Negative Urine Urobilinogen Normal Ur Leukocyte Esterase Trace Urine WBC (Auto) 23 H Urine RBC (Auto) 1 Urine Bacteria Rare Assessment & Plan - Assessment and Plan (Free Text) Plan: Lovenox Protonix Home medications Workup for the DVT as an outpatient setting Continue as ordered Pain medications Uric acid level tomorrow morning Encourage p.o.
[2017-03-09] MEDS ORDERED: Sod Polystyrene Sulf 15 gm/60 ml Susp PO ONE (18:51)
[2017-03-09] MEDS: Enoxaparin 80 mg Syringe SC SCH (22:19)
[2017-03-09] MEDS: Albuterol HFA 90 mcg/actuation (8 g) IH SCH (22:44)
[2017-03-10 07:16] LABS: HEMATOCRIT 42.3 % (34.0-47.0); MEAN CORPUSCULAR HEMOGLOBIN 30.4 pg (27.0-31.0); MEAN CORPUSCULAR HGB CONC 32.7 g/dL (33.0-37.0); MEAN PLATELET VOLUME 10.1 fL (7.2-11.7); RED CELL DISTRIBUTION WIDTH 15.6 % (11.5-14.5); WHITE BLOOD COUNT 8.5 K/uL (4.8-10.8)
[2017-03-10 07:26] LABS: POTASSIUM 3.8 mmol/L (3.6-5.2)
[2017-03-10 07:28] LABS: ALB/GLOB RATIO 1.1 (1.0-2.1); BILIRUBIN,TOTAL 0.4 mg/dL (0.2-1.3); TOTAL PROTEIN 7.1 g/dL (6.3-8.3)
[2017-03-10 07:29] LABS: CALCIUM 10.1 mg/dl (8.6-10.4)
[2017-03-10] MEDS: Albuterol HFA 90 mcg/actuation (8 g) IH SCH ×4 (08:59→19:13)
[2017-03-10] MEDS: Enoxaparin 80 mg Syringe SC SCH ×2 (09:31→22:03)
[2017-03-10] MEDS: Pantoprazole 40 mg EC Tab PO SCH (09:32)
[2017-03-10] MEDS: Multiple Vitamins Tab PO SCH (09:32)
[2017-03-10] MEDS ORDERED: MIRABEGRON 25 MG PO SCH (10:00)
--- NOTE | 2017-03-10 18:58 | CP.PCM.PN ---
Subjective - Date & Time of Evaluation Date of Evaluation: 03/10/17 Time of Evaluation: 10:20 - Subjective Subjective: clinically same Objective - Vital Signs/Intake and Output Vital Signs (last 24 hours): Temp Pulse Resp BP Pulse Ox 97.7 F 67 20 156/75 H 97 03/10/17 15:33 03/10/17 15:33 03/10/17 15:33 03/10/17 15:33 03/10/17 15:33 - Medications Medications: Current Medications Albuterol (Ventolin Hfa 90 Mcg/Actuation (8 G)) 2 puff IH RQID [facility] Last Admin: 03/10/17 16:19 Dose: 2 puff Amlodipine Besylate (Norvasc) 5 mg PO DAILY [facility] Last Admin: 03/10/17 09:32 Dose: 5 mg Aspirin (Aspirin Chewable) 81 mg PO DAILY [facility] Last Admin: 03/10/17 09:32 Dose: 81 mg Clonazepam (Klonopin) 0.5 mg PO BID [facility] Last Admin: 03/10/17 18:37 Dose: 0.5 mg Enoxaparin Sodium (Lovenox) 70 mg SC Q12 [facility] Last Admin: 03/10/17 09:31 Dose: 70 mg Metoprolol Tartrate (Lopressor) 50 mg PO BID [facility] Last Admin: 03/10/17 18:37 Dose: 50 mg Montelukast Sodium (Singulair) 10 mg PO HS [facility] Last Admin: 03/09/17 22:18 Dose: 10 mg Multivitamins (Hexavitamin) 1 tab PO DAILY [facility] Last Admin: 03/10/17 09:32 Dose: 1 tab Pantoprazole Sodium (Protonix Ec Tab) 40 mg PO DAILY [facility] Last Admin: 03/10/17 09:32 Dose: 40 mg Tolterodine Tartrate (Detrol La) 2 mg PO DAILY [facility] Trazodone HCl (Desyrel) 50 mg PO HS [facility] Last Admin: 03/09/17 22:18 Dose: 50 mg - Labs Labs: 03/10/17 07:03 03/10/17 07:03 PT 10.8 SECONDS (9.7-12.2) 03/09/17 14:46 INR 1.0 03/09/17 14:46 APTT 28 SECONDS (21-34) 03/09/17 14:46
[2017-03-11] MEDS: Albuterol HFA 90 mcg/actuation (8 g) IH SCH ×3 (08:00→19:19)
[2017-03-11] MEDS: Enoxaparin 80 mg Syringe SC SCH ×2 (09:21→21:43)
[2017-03-11] MEDS: Multiple Vitamins Tab PO SCH (09:22)
[2017-03-11] MEDS: Pantoprazole 40 mg EC Tab PO SCH (09:22)
[2017-03-11] MEDS: Tolterodine 2 mg ER Cap PO SCH (10:31)
--- NOTE | 2017-03-11 19:37 | CP.PCM.PN ---
Subjective - Date & Time of Evaluation Date of Evaluation: 03/11/17 Time of Evaluation: 10:00 - Subjective Subjective: clinically same Objective - Vital Signs/Intake and Output Vital Signs (last 24 hours): Temp Pulse Resp BP Pulse Ox 98.2 F 69 18 137/75 97 03/11/17 15:26 03/11/17 15:26 03/11/17 15:26 03/11/17 15:26 03/11/17 15:26 Intake and Output: 03/11/17 03/12/17 18:59 06:59 Intake Total 340 Balance 340 - Medications Medications: Current Medications Albuterol (Ventolin Hfa 90 Mcg/Actuation (8 G)) 2 puff IH RQID [facility] Last Admin: 03/11/17 19:19 Dose: 2 puff Amlodipine Besylate (Norvasc) 5 mg PO DAILY [facility] Last Admin: 03/11/17 09:22 Dose: 5 mg Aspirin (Aspirin Chewable) 81 mg PO DAILY [facility] Last Admin: 03/11/17 09:22 Dose: 81 mg Clonazepam (Klonopin) 0.5 mg PO BID [facility] Last Admin: 03/11/17 17:50 Dose: 0.5 mg Enoxaparin Sodium (Lovenox) 70 mg SC Q12 [facility] Last Admin: 03/11/17 09:21 Dose: 70 mg Metoprolol Tartrate (Lopressor) 50 mg PO BID [facility] Last Admin: 03/11/17 17:50 Dose: 50 mg Montelukast Sodium (Singulair) 10 mg PO HS [facility] Last Admin: 03/10/17 22:03 Dose: 10 mg Multivitamins (Hexavitamin) 1 tab PO DAILY [facility] Last Admin: 03/11/17 09:22 Dose: 1 tab Pantoprazole Sodium (Protonix Ec Tab) 40 mg PO DAILY [facility] Last Admin: 03/11/17 09:22 Dose: 40 mg Tolterodine Tartrate (Detrol La) 2 mg PO DAILY [facility] Last Admin: 03/11/17 10:31 Dose: 2 mg Trazodone HCl (Desyrel) 50 mg PO HS [facility] Last Admin: 03/10/17 22:03 Dose: 50 mg - Labs Labs: 03/10/17 07:03 03/10/17 07:03 PT 10.8 SECONDS (9.7-12.2) 03/09/17 14:46 INR 1.0 03/09/17 14:46 APTT 28 SECONDS (21-34) 03/09/17 14:46 - Constitutional Appears: Well - Head Exam Head Exam: ATRAUMATIC, NORMAL INSPECTION, NORMOCEPHALIC - Eye Exam Eye Exam: EOMI, Normal appearance, PERRL Pupil Exam: NORMAL ACCOMODATION, PERRL - ENT Exam ENT Exam: Mucous Membranes Moist, Normal Exam - Respiratory Exam Respiratory Exam: Decreased Breath Sounds - Cardiovascular Exam Cardiovascular Exam: REGULAR RHYTHM, +S1, +S2 - GI/Abdominal Exam GI & Abdominal Exam: Soft, Diminished Bowel Sounds - Rectal Exam Rectal Exam: Deferred
[2017-03-12 06:35] LABS: BASO # 0.1 K/uL (0.0-0.2); BASO % 1.1 % (0.0-2.0); EOS # 0.3 K/uL (0.0-0.7); EOS % 3.2 % (0.0-4.0); HEMATOCRIT 41.7 % (34.0-47.0); LYMPH # 3.5 K/uL (1.0-4.3); LYMPH % 39.2 % (20.0-40.0); MEAN CELL VOLUME 91.8 fL (81.0-99.0); MEAN CORPUSCULAR HEMOGLOBIN 30.5 pg (27.0-31.0); MEAN CORPUSCULAR HGB CONC 33.2 g/dL (33.0-37.0); MEAN PLATELET VOLUME 9.7 fL (7.2-11.7); MONO # 0.8 K/uL (0.0-0.8); MONO % 9.1 % (0.0-10.0); RED CELL DISTRIBUTION WIDTH 15.3 % (11.5-14.5)
[2017-03-12 07:46] LABS: POTASSIUM 4.1 mmol/L (3.6-5.2)
[2017-03-12 07:49] LABS: CALCIUM 10.2 mg/dl (8.6-10.4)
[2017-03-12] MEDS: Albuterol HFA 90 mcg/actuation (8 g) IH SCH ×2 (08:46→11:02)
--- NOTE | 2017-03-12 09:09 | CP.PCM.PN ---
<Ferdinand Escobedo - Last Filed: 03/12/17 09:09> Subjective - Date & Time of Evaluation Date of Evaluation: 03/12/17 Time of Evaluation: 09:09 - Subjective Subjective: PGY-[address] Harry's Service: Pt seen and examined at bedside. Nursing reports no acute events overnight. Objective - Vital Signs/Intake and Output Vital Signs (last 24 hours): Temp Pulse Resp BP Pulse Ox 97.8 F 69 17 157/80 H 96 03/12/17 07:10 03/12/17 07:10 03/12/17 07:10 03/12/17 07:10 03/12/17 07:10 Intake and Output: 03/12/17 03/12/17 06:59 18:59 Intake Total 150 Balance 150 - Medications Medications: Current Medications Albuterol (Ventolin Hfa 90 Mcg/Actuation (8 G)) 2 puff IH RQID [facility] Last Admin: 03/11/17 19:19 Dose: 2 puff Amlodipine Besylate (Norvasc) 5 mg PO DAILY [facility] Last Admin: 03/11/17 09:22 Dose: 5 mg Aspirin (Aspirin Chewable) 81 mg PO DAILY [facility] Last Admin: 03/11/17 09:22 Dose: 81 mg Clonazepam (Klonopin) 0.5 mg PO BID [facility] Last Admin: 03/11/17 17:50 Dose: 0.5 mg Enoxaparin Sodium (Lovenox) 70 mg SC Q12 [facility] Metoprolol Tartrate (Lopressor) 50 mg PO BID [facility] Last Admin: 03/11/17 17:50 Dose: 50 mg Montelukast Sodium (Singulair) 10 mg PO HS [facility] Last Admin: 03/11/17 21:43 Dose: 10 mg Multivitamins (Hexavitamin) 1 tab PO DAILY [facility] Last Admin: 03/11/17 09:22 Dose: 1 tab Pantoprazole Sodium (Protonix Ec Tab) 40 mg PO DAILY [facility] Last Admin: 03/11/17 09:22 Dose: 40 mg Tolterodine Tartrate (Detrol La) 2 mg PO DAILY [facility] Last Admin: 03/11/17 10:31 Dose: 2 mg Trazodone HCl (Desyrel) 50 mg PO HS [facility] Last Admin: 03/11/17 21:43 Dose: 50 mg - Labs Labs: 03/12/17 06:27 03/12/17 06:27 PT 10.8 SECONDS (9.7-12.2) 03/09/17 14:46 INR 1.0 03/09/17 14:46 APTT 28 SECONDS (21-34) 03/09/17 14:46 <Feng Chaudhry - Last Filed: 03/12/17 18:48> Objective - Vital Signs/Intake and Output Vital Signs (last 24 hours): Temp Pulse Resp BP Pulse Ox 98.1 F 76 20 168/77 H 98 03/12/17 15:23 03/12/17 15:23 03/12/17 15:23 03/12/17 15:23 03/12/17 15:23 Intake and Output: 03/12/17 03/12/17 06:59 18:59 Intake Total 150 500 Balance 150 500 - Labs Labs: 03/12/17 06:27 03/12/17 06:27 PT 10.8 SECONDS (9.7-12.2) 03/09/17 14:46 INR 1.0 03/09/17 14:46 APTT 28 SECONDS (21-34) 03/09/17 14:46 Assessment and Plan - Assessment and Plan (Free Text) Assessment: Eliquis was not covered by the patients insurance instead of 2.5BID of Eliquis the patient was given 20mg PO daily of Xarelto called in by myself, Dr. Chaudhry
[2017-03-12 09:36] VITALS: PULSE 76
[2017-03-12] MEDS: Tolterodine 2 mg ER Cap PO SCH (09:36)
[2017-03-12] MEDS: Multiple Vitamins Tab PO SCH (09:36)
[2017-03-12] MEDS: Pantoprazole 40 mg EC Tab PO SCH (09:36)
[2017-03-12] MEDS ORDERED: Enoxaparin 80 mg Syringe SC SCH ×2 (10:00→11:45)
--- NOTE | 2017-03-12 12:10 | VASCLAB ---
PROCEDURE: Lower Extremity Venous Duplex Exam. HISTORY: pain in feet/calfs PRIORS: None. TECHNIQUE: Bilateral common femoral, femoral, popliteal and posterior tibial, peroneal and great saphenous veins were evaluated. Flow was assessed with color Doppler, compressibility, assessment of phasic flow and augmentation response. Report prepared by LANA Velázquez, RVT FINDINGS: RIGHT: 1. Common Femoral Vein: 1.1. Compressibility - Fully compressible: Thrombus - None : Flow - Phasic: Augmentation -Normal: Reflux - None. 2. Femoral Vein: 2.1. Compressibility - Fully compressible: Thrombus - None : Flow - Phasic: Augmentation -Normal: Reflux - None. 3. Popliteal Vein: 3.1. Compressibility - Fully compressible: Thrombus - None : Flow - Phasic: Augmentation -Normal: Reflux - None. 4. Posterior Tibial Vein: 4.1. Compressibility - Fully compressible: Thrombus - None: Flow - Phasic: Augmentation -Normal: Reflux - None. 5. Peroneal Vein: 5.1. Compressibility - Fully compressible: Thrombus - None: Flow - Phasic: Augmentation -Normal: Reflux - None. 6. Great Saphenous Vein: 6.1. Compressibility - Fully compressible: Thrombus - None: Flow - Phasic: Augmentation - Normal: Reflux - None. LEFT: 1. Common Femoral Vein: 1.1. Compressibility - Fully compressible: Thrombus - None: Flow - Phasic: Augmentation -Normal: Reflux - None. 2. Femoral Vein: 2.1. Compressibility - Fully compressible: Thrombus - None: Flow - Phasic: Augmentation -Normal: Reflux - None. 3. Popliteal Vein: 3.1. Compressibility - Fully compressible: Thrombus - None : Flow - Phasic: Augmentation -Normal: Reflux - None. 4. Posterior Tibial Vein: 4.1. Compressibility - Fully compressible: Thrombus - None: Flow - Phasic: Augmentation -Normal: Reflux - None. 5. Peroneal Vein: 5.1. Compressibility - Partial: Thrombus - Acute: Flow - Absent : Augmentation -None: Reflux - None. 6. Great Saphenous Vein: 6.1. Compressibility - Fully compressible: Thrombus - None: Flow - Phasic: Augmentation - Normal: Reflux - None. OTHER FINDINGS: NATANAEL Moon notified about the findings. IMPRESSION: Right: No evidence of deep or superficial vein thrombosis of the right lower extremity. Normal valve function noted of the right side. Left: Acute thrombosis of the left peroneal vein with severe reduction of the venous return.
[2017-03-12 18:24] VITALS: BP 168/77; RESP 20; TEMP 98.1; O2SAT 98
--- NOTE | 2017-03-12 21:59 | CP.PCM.PN ---
Subjective - Date & Time of Evaluation Date of Evaluation: 03/12/17 Objective - Vital Signs/Intake and Output Vital Signs (last 24 hours): Temp Pulse Resp BP Pulse Ox 98.1 F 76 20 168/77 H 98 03/12/17 15:23 03/12/17 15:23 03/12/17 15:23 03/12/17 15:23 03/12/17 15:23 Intake and Output: 03/12/17 03/13/17 18:59 06:59 Intake Total 500 Balance 500 - Labs Labs: 03/12/17 06:27 03/12/17 06:27 PT 10.8 SECONDS (9.7-12.2) 03/09/17 14:46 INR 1.0 03/09/17 14:46 APTT 28 SECONDS (21-34) 03/09/17 14:46
== END 2017-03-12 17:30 | disposition home or self-care (01) | DRG 301 ==
LOC: C.ER 12:53 → C.9E 17:11 → C.6T 18:16
PROVIDERS: ADMIT Internal Medicine Nephrology; ATTEND Internal Medicine Nephrology
DX: I82.4Z2 Acute embolism and thrombosis of unspecified deep veins of left distal lower extremity (principal); N28.9 Disorder of kidney and ureter, unspecified; I10 Essential (primary) hypertension; M10.9 Gout, unspecified; F41.9 Anxiety disorder, unspecified; F17.210 Nicotine dependence, cigarettes, uncomplicated; Z90.49 Acquired absence of other specified parts of digestive tract